=== PATIENT | male | born 1955 | race Caucasian/White ===

== ENCOUNTER 2017-04-16 22:57 | Emergency (ER) | payer OTHER ==
[~2017-04-16 22:57] MED LIST: AEC81 PO; ATOR20TA65 PO; GLIP1TAB6 PO; INSU10VI3 SQ; ISOS30TA6 PO; LISI10TA7 PO; MINERAL PO; NITR0.4T50 SL; TAMS0.4C32 PO; TICA90TA PO
[2017-04-16 23:19] LABS: BASOPHILS % (AUTO) 0.9 % (0.0-5.0); EOSINOPHILS % (AUTO) 2.8 % (0.0-8.0); HEMATOCRIT 39.1 % (42-54); LYMPHOCYTES % (AUTO) 27.1 % (21.0-51.0); MEAN CORPUSCULAR HEMOGLOBIN 26.7 pg (27.0-33.0); MEAN CORPUSCULAR HGB CONC 34.3 g/dL (32.0-36.0); NEUTROPHILS % (AUTO) 63.2 % (40.0-77.0); PLATELET COUNT (AUTO) 220 K/uL (130-400); RED BLOOD CELL COUNT(AUTO) 5.02 MIL/uL (4.50-6.20); RED CELL DISTRIBUTION WIDTH 14.4 % (11.0-15.5)
[2017-04-16] MEDS ORDERED: ASPIRIN 81MG TAB.CHEW ONE (23:20)
[2017-04-16 23:28] LABS: POTASSIUM 3.9 mmol/L (3.5-5.1)
[2017-04-16 23:41] LABS: ALBUMIN 3.6 g/dL (3.5-5.0); BILIRUBIN,TOTAL 0.4 mg/dL (0.2-1.0); CREATINE KINASE MB 0.5 ng/mL (0.5-3.6); MAGNESIUM 1.6 mg/dL (1.80-2.40); TOTAL PROTEIN, SERUM 7.3 g/dL (6.0-8.3)
[2017-04-16 23:45] LABS: INR 0.97 (0.85-1.15); PARTIAL THROMBOPLASTIN TIME 24.4 SEC (26.3-35.5); PROTHROMBIN TIME 10.2 SEC (9.6-11.6)
[2017-04-17] MEDS ORDERED: NITROGLYCERIN 1GM/1 INCH PACKET TD ONE (00:44)
[2017-04-17 01:14] LABS: CREATINE KINASE MB < 0.5 ng/mL (0.5-3.6); CREATINE KINASE, TOTAL 53 U/L (21-232); MYOGLOBIN 40 ng/mL (10-92); TROPONIN I < 0.04 ng/mL (0.00-0.06)
[2017-04-17] MEDS ORDERED: MAGNESIUM OXIDE 400 MG TABLET PO ONE (02:22)
== END 2017-04-17 04:08 | disposition home or self-care (01) ==
LOC: EDH 22:57
DX: M54.12 Radiculopathy, cervical region (principal); R68.84 Jaw pain; M54.2 Cervicalgia; E83.42 Hypomagnesemia; E11.9 Type 2 diabetes mellitus without complications; E78.5 Hyperlipidemia, unspecified; I10 Essential (primary) hypertension; Z88.8 Allergy status to other drugs, medicaments and biological substances
CPT/HCPCS: 36415; 71045; 80053; 82550; 82553; 82948; 83735; 83874; 84484; 85025; 85610; 85730; 93005

== ENCOUNTER 2018-09-27 14:18 | Emergency (ER) | payer BC, OTHER ==
[2018-09-27 14:42] LABS: BASOPHILS % (AUTO) 0.9 % (0.0-5.0); EOSINOPHILS % (AUTO) 2.1 % (0.0-8.0); HEMATOCRIT 40.9 % (42-54); LYMPHOCYTES % (AUTO) 20.1 % (21.0-51.0); MEAN CORPUSCULAR HEMOGLOBIN 26.7 pg (27.0-33.0); MEAN CORPUSCULAR HGB CONC 33.1 g/dL (32.0-36.0); MEAN CORPUSCULAR VOLUME 80.7 fL (79-99); MONOCYTES % (AUTO) 4.7 % (3.0-13.0); NEUTROPHILS % (AUTO) 72.2 % (40.0-77.0); NUCLEATED RED BLOOD CELLS 0.1 % (0.0-0.19); PLATELET COUNT (AUTO) 204 K/uL (130-400); RED BLOOD CELL COUNT(AUTO) 5.06 MIL/uL (4.50-6.20); RED CELL DISTRIBUTION WIDTH 14.3 % (11.0-15.5); WHITE BLOOD COUNT (AUTO) 8.7 K/uL (4.8-10.8)
[2018-09-27 14:58] LABS: CREATININE 1.1 mg/dL (0.5-1.5); POTASSIUM 4.3 mmol/L (3.5-5.1)
[2018-09-27 15:04] LABS: ALBUMIN 3.7 g/dL (3.5-5.0); BILIRUBIN,TOTAL 0.4 mg/dL (0.2-1.0); CREATINE KINASE, TOTAL 55 U/L (21-232); MYOGLOBIN 51 ng/mL (10-92); TOTAL PROTEIN, SERUM 7.4 g/dL (6.0-8.3); TROPONIN I < 0.04 ng/mL (0.00-0.06)
== END 2018-09-27 16:32 | disposition home or self-care (01) ==
LOC: EDH 14:18
DX: R42 Dizziness and giddiness (principal); E11.9 Type 2 diabetes mellitus without complications; E78.5 Hyperlipidemia, unspecified; I10 Essential (primary) hypertension; I25.10 Atherosclerotic heart disease of native coronary artery without angina pectoris; Z88.7 Allergy status to serum and vaccine
CPT/HCPCS: 36415; 70450; 80053; 82550; 83874; 84484; 85025; 93005

== ENCOUNTER 2019-06-08 20:17 | Emergency (ER) | payer BC, MEDICAID, OTHER, SELFPAY ==
[2019-06-08] MEDS ORDERED: GUAIFENESIN-CODEINE 5 ML SYRUP ONE (20:58)
[2019-06-08] MEDS ORDERED: BENZONATATE 100 MG CAPSULE PO ONE (20:58)
[2019-06-08 21:30] LABS: BASOPHILS % (AUTO) 0.3 % (0.0-5.0); EOSINOPHILS % (AUTO) 0.3 % (0.0-8.0); HEMATOCRIT 36.1 % (42-54); LYMPHOCYTES % (AUTO) 23.3 % (21.0-51.0); MEAN CORPUSCULAR HEMOGLOBIN 26.1 pg (27.0-33.0); MEAN CORPUSCULAR HGB CONC 33.2 g/dL (32.0-36.0); MEAN CORPUSCULAR VOLUME 78.6 fL (79-99); MONOCYTES % (AUTO) 12.7 % (3.0-13.0); NEUTROPHILS % (AUTO) 63.1 % (40.0-77.0); PLATELET COUNT (AUTO) 123 K/uL (130-400); RED BLOOD CELL COUNT(AUTO) 4.59 MIL/uL (4.50-6.20); RED CELL DISTRIBUTION WIDTH 13.4 % (11.0-15.5); WHITE BLOOD COUNT (AUTO) 3.8 K/uL (4.8-10.8)
[2019-06-08 21:42] LABS: CREATININE 1.2 mg/dL (0.5-1.5); POTASSIUM 4.2 mmol/L (3.5-5.1)
[2019-06-08 21:44] LABS: INR 0.99 (0.85-1.15); PARTIAL THROMBOPLASTIN TIME 31.3 SEC (26.3-35.5); PROTHROMBIN TIME 10.7 SEC (9.6-11.6)
[2019-06-08 21:46] LABS: ALBUMIN 3.5 g/dL (3.5-5.0); BILIRUBIN,TOTAL 0.6 mg/dL (0.2-1.0); TOTAL PROTEIN, SERUM 6.9 g/dL (6.0-8.3)
[2019-06-08] MEDS ORDERED: ACETAMINOPHEN EXTRA STRENGTH 500 MG TABLET ONE (22:57)
== END 2019-06-08 23:46 | disposition home or self-care (01) ==
LOC: EDH 20:17
DX: J12.9 Viral pneumonia, unspecified (principal); R00.2 Palpitations; Z20.828 Contact with and (suspected) exposure to other viral communicable diseases; E11.9 Type 2 diabetes mellitus without complications; I10 Essential (primary) hypertension; E78.5 Hyperlipidemia, unspecified; I25.10 Atherosclerotic heart disease of native coronary artery without angina pectoris; Z79.4 Long term (current) use of insulin; Z88.7 Allergy status to serum and vaccine
CPT/HCPCS: 36415; 71046; 71250; 80053; 82550; 83605; 84484; 85025; 85610; 85730; 87040; 87486; 87581; 87633; 87635; 87798; 87804; 93005

== ENCOUNTER 2019-06-10 23:34 | Inpatient (IN) | payer OTHER ==
[~2019-06-10] VITALS: Ht 180.3 cm; Wt 89.8 kg
[2019-06-10] MEDS ORDERED: MAG HYDROX/AL HYDROX/SIMETH ES 30 ML SUSP UDCUP ONE (23:49)
[2019-06-10] MEDS ORDERED: LIDOCAINE HCL 2% VISCOUS 15 ML UDCUP ONE (23:49)
[2019-06-10] MEDS ORDERED: CEFTRIAXONE SODIUM 2 GM VIAL ONE (23:49)
[2019-06-10] MEDS ORDERED: AZITHROMYCIN 500MG+NS 250ML 250 ML IV ONE (23:49)
[2019-06-10] MEDS ORDERED: ALBUTEROL INHALER 90MCG/INH IH ONE (23:57)
[2019-06-11] VITALS (36 sets, daily range): BP systolic 95–161; BP diastolic 47–77
[2019-06-11 00:18] LABS: CARBON DIOXIDE 25 mmol/L (21-32); CHLORIDE 92 mmol/L (101-111); CREATININE 1.3 mg/dL (0.5-1.5); GLOMERULAR FILTR. RATE CALC 59 mL/min (>60); GLUCOSE,RANDOM 173 mg/dL (70-105); POTASSIUM 4.1 mmol/L (3.5-5.1); SODIUM SERUM 126 mmol/L (136-145); UREA NITROGEN, BLOOD 15 mg/dL (7-18)
[2019-06-11 00:20] LABS: INR 0.94 (0.85-1.15); PARTIAL THROMBOPLASTIN TIME 29.8 SEC (26.3-35.5); PROTHROMBIN TIME 10.2 SEC (9.6-11.6)
[2019-06-11 00:29] LABS: RAPID GROUP A STREP NEGATIVE (NEGATIVE)
[2019-06-11 00:29] LABS: ALANINE AMINOTRANSFERASE 35 U/L (12-78); ASPARTATE AMINOTRANSFERASE 46 U/L (10-37); BILIRUBIN,TOTAL 0.6 mg/dL (0.2-1.0); CREATINE KINASE, TOTAL 375 U/L (21-232); MYOGLOBIN 229 ng/mL (10-92); TOTAL PROTEIN, SERUM 6.9 g/dL (6.0-8.3); TROPONIN I < 0.04 ng/mL (0.00-0.06)
[2019-06-11 00:42] LABS: BASOPHILS % (AUTO) 0.3 % (0.0-5.0); HEMATOCRIT 33.9 % (42-54); LYMPHOCYTES % (AUTO) 16.8 % (21.0-51.0); MEAN CORPUSCULAR HEMOGLOBIN 26.1 pg (27.0-33.0); MEAN CORPUSCULAR HGB CONC 33.6 g/dL (32.0-36.0); MEAN CORPUSCULAR VOLUME 77.6 fL (79-99); MONOCYTES % (AUTO) 8.9 % (3.0-13.0); NEUTROPHILS % (AUTO) 73.7 % (40.0-77.0); PLATELET COUNT (AUTO) 126 K/uL (130-400); RED BLOOD CELL COUNT(AUTO) 4.37 MIL/uL (4.50-6.20); RED CELL DISTRIBUTION WIDTH 13.4 % (11.0-15.5); WHITE BLOOD COUNT (AUTO) 3.8 K/uL (4.8-10.8)
[2019-06-11] MEDS ORDERED: ACETAMINOPHEN EXTRA STRENGTH 500 MG TABLET ONE (00:59)
[2019-06-11] MEDS ORDERED: METHYLPREDNISOLONE SOD SUCC 125MG/2ML VIAL ONE (01:01)
[2019-06-11] MEDS: CEFTRIAXONE SODIUM 1 GM IVP SCH ×2 (01:15→12:12)
[2019-06-11] MEDS: ZOSYN 3.375GM+NS 50ML 50 ML IV SCH ×2 (01:15→10:18)
[2019-06-11] MEDS: LACTATED RINGERS 1000ML 1,000 ML IV SCH ×2 (01:15→12:39)
[2019-06-11] MEDS ORDERED: DEXTROSE 50%-WATER 50 ML DISP.SYRIN IV PRN (01:30)
[2019-06-11] MEDS ORDERED: GLUCAGON 1MG KIT 1 MG ML IM PRN (01:30)
[2019-06-11 01:35] LABS: BILIRUBIN,URINE Negative (NEGATIVE); COLOR,URINE Yellow (YELLOW); GLUCOSE, URINE (UA) Negative (NEGATIVE); KETONES,URINE Negative (NEGATIVE); LEUKOCYTE ESTERASE ,URINE Negative (NEGATIVE); NITRATE,URINE Negative (NEGATIVE); OCCULT BLOOD,URINE Negative (NEGATIVE); PH,URINE 5.5 (5.0-8.0); PROTEIN,URINE Negative (NEGATIVE)
[2019-06-11] MEDS ORDERED: LACTATED RINGERS 1000ML 1,000 ML IV ONE (01:35)
[2019-06-11] MEDS ORDERED: ZOSYN 3.375GM+NS 50ML 50 ML IV ONE (01:35)
[2019-06-11 01:38] LABS: APPEARANCE,URINE CLEAR (CLEAR)
[2019-06-11] MEDS ORDERED: ONDANSETRON HCL 4 MG/2 ML VIAL IV PRN (01:45)
[2019-06-11] MEDS: INSULIN HUMULIN R 100 UNIT/ML 3ML SQ SCH ×4 (06:52→21:47)
[2019-06-11 06:58] LABS: HEMATOCRIT 33.8 % (42-54); LYMPHOCYTES % (AUTO) 16.9 % (21.0-51.0); MEAN CORPUSCULAR HEMOGLOBIN 26.5 pg (27.0-33.0); MEAN CORPUSCULAR HGB CONC 33.1 g/dL (32.0-36.0); MEAN CORPUSCULAR VOLUME 79.9 fL (79-99); MONOCYTES % (AUTO) 4.7 % (3.0-13.0); NEUTROPHILS % (AUTO) 77.7 % (40.0-77.0); PLATELET COUNT (AUTO) 122 K/uL (130-400); RED BLOOD CELL COUNT(AUTO) 4.23 MIL/uL (4.50-6.20); RED CELL DISTRIBUTION WIDTH 13.5 % (11.0-15.5)
[2019-06-11 07:14] LABS: HEMOGLOBIN A1C 8.8 % (4.0-6.0)
[2019-06-11 07:21] LABS: ALANINE AMINOTRANSFERASE 38 U/L (12-78); ALBUMIN 2.7 g/dL (3.5-5.0); ASPARTATE AMINOTRANSFERASE 40 U/L (10-37); BILIRUBIN,TOTAL 0.5 mg/dL (0.2-1.0); CARBON DIOXIDE 26 mmol/L (21-32); CHLORIDE 98 mmol/L (101-111); CHOLESTEROL 84 mg/dL (<200); CREATINE KINASE, TOTAL 337 U/L (21-232); CREATININE 1.2 mg/dL (0.5-1.5); GLOMERULAR FILTR. RATE CALC 65 mL/min (>60); GLUCOSE,RANDOM 256 mg/dL (70-105); HDL CHOLESTEROL 30 mg/dL (29-71); LDL DIRECT 46 mg/dL (0-99); MYOGLOBIN 101 ng/mL (10-92); POTASSIUM 5.1 mmol/L (3.5-5.1); SODIUM SERUM 131 mmol/L (136-145); TOTAL PROTEIN, SERUM 6.6 g/dL (6.0-8.3); TRIGLYCERIDES 64 mg/dL (30-200); TROPONIN I < 0.04 ng/mL (0.00-0.06); UREA NITROGEN, BLOOD 15 mg/dL (7-18)
[2019-06-11 08:20] LABS: BAND NEUTROPHILS % (MANUAL) 6 % (0-2); LYMPHOCYTES % (MANUAL) 9 % (22-44); MONOCYTES % (MANUAL) 5 % (2-9); SEGMENTED NEUTROPHILS % 80 % (40-70)
[2019-06-11 08:21] LABS: MAN.DIFF COMMENT-IMPRESSION MANUAL DIFFERENTIAL; PLATELET MORPHOLOGY COMMENT ADEQUATE
[2019-06-11] MEDS ORDERED: METHYLPREDNISOLONE SOD SUCC 40MG/ML 1ML IVP SCH (09:00)
[2019-06-11] MEDS: PANTOPRAZOLE 40 MG/VIAL IVP SCH ×2 (09:48→20:40)
[2019-06-11] MEDS: ASCORBIC ACID 500 MG TAB PO SCH (09:48)
[2019-06-11] MEDS: HYDROXYCHLOROQUINE SULFATE 200 MG TAB PO SCH ×2 (14:41→20:40)
[2019-06-11] MEDS: AZITHROMYCIN 500MG+NS 250ML 250 ML IV SCH (14:41)
--- NOTE | 2019-06-11 15:52 | NUR ---
INITIAL Patient lives with spouse, Odalis Lockwood, [phone]. No home services. DME: nebulizer, BPM, glucometer (uses insulin), oximeter. Patient needs help with ADL's and does not drive. PCP is Dr. Rohit Levine in [place]. Pharmacy is [facility] located in [place]. DCP is home. Patient has no insurance or benefits. He is a [place] citizen and has worked in the [place]. SW educated spouse on [email or web address] $4 medication program and [facility] $5 medication program. Patient is being assisted by [employer] for financial matters. Addendum: 06/11/19 at 1556 by KENDRA PRIETO Amended: Links added.
--- NOTE | 2019-06-11 21:30 | NUR ---
Assumed care for patient received report from radha patient is aaox4, vss , currently on nc @3L and tolerating well with oxygen levels at 94%
[2019-06-12] VITALS (21 sets, daily range): BP systolic 110–172; BP diastolic 54–102
[2019-06-12] MEDS: CEFTRIAXONE SODIUM 1 GM IVP SCH ×2 (00:39→12:20)
[2019-06-12] MEDS: ZOSYN 3.375GM+NS 50ML 50 ML IV SCH ×2 (00:39→12:20)
[2019-06-12] MEDS: GUAIFENESIN-CODEINE 5 ML SYRUP PO PRN ×2 (02:00→19:50)
[2019-06-12] MEDS: INSULIN HUMULIN R 100 UNIT/ML 3ML SQ SCH ×4 (06:02→21:17)
[2019-06-12 06:18] LABS: HEMATOCRIT 35.4 % (42-54); LYMPHOCYTES % (AUTO) 7.6 % (21.0-51.0); MEAN CORPUSCULAR HEMOGLOBIN 25.9 pg (27.0-33.0); MEAN CORPUSCULAR HGB CONC 32.5 g/dL (32.0-36.0); MEAN CORPUSCULAR VOLUME 79.7 fL (79-99); MONOCYTES % (AUTO) 7.2 % (3.0-13.0); NEUTROPHILS % (AUTO) 84.9 % (40.0-77.0); PLATELET COUNT (AUTO) 151 K/uL (130-400); RED BLOOD CELL COUNT(AUTO) 4.44 MIL/uL (4.50-6.20); RED CELL DISTRIBUTION WIDTH 13.3 % (11.0-15.5); WHITE BLOOD COUNT (AUTO) 6.8 K/uL (4.8-10.8)
[2019-06-12 06:32] LABS: ALBUMIN 2.7 g/dL (3.5-5.0); BILIRUBIN,TOTAL 0.4 mg/dL (0.2-1.0); CREATININE 1.2 mg/dL (0.5-1.5); MAGNESIUM 2.5 mg/dL (1.80-2.40); PHOSPHORUS 3.4 mg/dL (2.5-4.9); POTASSIUM 4.6 mmol/L (3.5-5.1); TOTAL PROTEIN, SERUM 6.7 g/dL (6.0-8.3)
[2019-06-12] MEDS: PANTOPRAZOLE 40 MG/VIAL IVP SCH (07:49)
[2019-06-12] MEDS: ASCORBIC ACID 500 MG TAB PO SCH (07:50)
[2019-06-12] MEDS: ZINC SULFATE 220 CAPSULE PO SCH (08:43)
[2019-06-12] MEDS ORDERED: HYDROXYCHLOROQUINE SULFATE 200 MG TAB PO SCH (09:00)
[2019-06-12] MEDS: AZITHROMYCIN 500MG+NS 250ML 250 ML IV SCH (11:51)
[2019-06-12] MEDS: HYDROXYCHLOROQUINE SULFATE 200 MG TAB PO SCH (17:56)
[2019-06-12] MEDS: ACETAMINOPHEN 325 MG TAB PO PRN (19:53)
[2019-06-13] VITALS (26 sets, daily range): BP systolic 95–167; BP diastolic 50–86
[2019-06-13] MEDS: CEFTRIAXONE SODIUM 1 GM IVP SCH ×3 (00:15→23:32)
[2019-06-13] MEDS: HYDROXYCHLOROQUINE SULFATE 200 MG TAB PO SCH ×4 (00:15→23:32)
[2019-06-13] MEDS: GUAIFENESIN-CODEINE 5 ML SYRUP PO PRN ×3 (02:07→20:38)
[2019-06-13] MEDS: ACETAMINOPHEN 325 MG TAB PO PRN ×2 (02:11→20:38)
[2019-06-13 06:25] LABS: CRP QUANTITATIVE 45.8 mg/L (0.00-9.0)
[2019-06-13] MEDS: INSULIN HUMULIN R 100 UNIT/ML 3ML SQ SCH ×4 (06:46→21:00)
[2019-06-13] MEDS: ZINC SULFATE 220 CAPSULE PO SCH (08:21)
[2019-06-13] MEDS: AZITHROMYCIN 250 MG TABLET PO SCH (09:50)
--- NOTE | 2019-06-13 14:58 | NUR ---
RD NOTIFICATION Dx possible COVID-19. Diet: 75gmccd. Po intake is poor, 0%. Pt reports having difficulties swallowing food due to SOB as per RN. Labs reviewed (a1c 8.8, renal function is good). Skin is intact. RD recommends to add mechanical soft/chopped to diet order Add glucerna TID to diet order Recommend 500mg Vitamin C BID - support immune function RD will continue to monitor and follow up, thank you. Addendum: 06/13/19 at [address] Amended: Links added.
[2019-06-13] MEDS ORDERED: PROMETHAZINE HCL 25 MG/ML 1ML AMPULE IM PRN (15:00)
--- NOTE | 2019-06-13 18:59 | NUR ---
PERRY CATHETER PERRY CATHETER ATTEMPTED TO BE REMOVED AT 1730; PATIENT REFUSED STATING THAT HE HAS DIFFICULTY URINATING AND DID NOT WANT IT REMOVED; DR QUEZADA AT BEDSIDE AND NOTIFIED; STATED WE NEED TO REMOVE PERRY CATHETER. PATIENT INFORMED ON RISKS OF KEEPING PERRY CATHETER AND FINALLY STATED HE WAS OK WITH REMOVING IT. PERRY CATHETER REMOVED AT 1850; REPORT WILL BE GIVEN TO PRODUCTION SUPERINTENDENT
[2019-06-13] MEDS: ASCORBIC ACID 500 MG TAB PO SCH (20:37)
[2019-06-14] VITALS (19 sets, daily range): BP systolic 126–170; BP diastolic 48–84
[2019-06-14 05:47] LABS: CRP QUANTITATIVE 180.4 mg/L (0.00-9.0)
[2019-06-14] MEDS: INSULIN HUMULIN R 100 UNIT/ML 3ML SQ SCH ×5 (06:28→21:00)
[2019-06-14] MEDS: HYDROXYCHLOROQUINE SULFATE 200 MG TAB PO SCH ×2 (08:55→16:37)
[2019-06-14] MEDS: FLUTICASONE PROPIONATE 50MCG/SPRAY 16 GM BOTTLE EN SCH (08:55)
[2019-06-14] MEDS: AZITHROMYCIN 250 MG TABLET PO SCH (08:55)
[2019-06-14] MEDS: ZINC SULFATE 220 CAPSULE PO SCH (08:56)
[2019-06-14] MEDS: ASCORBIC ACID 500 MG TAB PO SCH ×2 (08:56→21:16)
[2019-06-14] MEDS: ACETAMINOPHEN 325 MG TAB PO PRN (09:54)
[2019-06-14] MEDS: GUAIFENESIN-CODEINE 5 ML SYRUP PO PRN ×3 (09:54→22:33)
[2019-06-14] MEDS: CEFTRIAXONE SODIUM 1 GM IVP SCH (15:01)
--- NOTE | 2019-06-14 15:19 | NUR ---
PT BLADDER DISTENDED AND TENDER ON PALPATION- PERRY CATH INSERTED WITHOUT PROBLEM. QUICKLY FLOWS INTO BEDSIDED DRAINAGE BAG
[2019-06-14] MEDS: TAMSULOSIN HCL 0.4 MG CAP.ER.24H PO SCH (16:36)
[2019-06-14] MEDS: FINASTERIDE 5 MG TABLET PO SCH (16:36)
[2019-06-14] MEDS: TICAGRELOR 90 MG TABLET PO SCH (21:18)
[2019-06-14] MEDS: ATORVASTATIN CALCIUM 20 MG TABLET PO SCH (21:19)
[2019-06-14] MEDS: INSULIN GLARGINE 100 UNITS/ML 10 ML VIAL SQ SCH (22:02)
[2019-06-15] VITALS (22 sets, daily range): BP systolic 132–195; BP diastolic 56–102
[2019-06-15] MEDS: CEFTRIAXONE SODIUM 1 GM IVP SCH ×2 (00:18→12:06)
[2019-06-15] MEDS: HYDROXYCHLOROQUINE SULFATE 200 MG TAB PO SCH ×3 (00:18→16:52)
[2019-06-15] MEDS: ACETAMINOPHEN 325 MG TAB PO PRN ×2 (00:26→07:00)
[2019-06-15] MEDS: INSULIN HUMULIN R 100 UNIT/ML 3ML SQ SCH ×4 (06:29→21:00)
[2019-06-15 06:35] LABS: BASOPHILS % (AUTO) 0.1 % (0.0-5.0); EOSINOPHILS % (AUTO) 0.4 % (0.0-8.0); HEMATOCRIT 33.5 % (42-54); LYMPHOCYTES % (AUTO) 9.9 % (21.0-51.0); MEAN CORPUSCULAR HEMOGLOBIN 26.3 pg (27.0-33.0); MEAN CORPUSCULAR HGB CONC 32.8 g/dL (32.0-36.0); MONOCYTES % (AUTO) 9.1 % (3.0-13.0); NEUTROPHILS % (AUTO) 79.1 % (40.0-77.0); PLATELET COUNT (AUTO) 185 K/uL (130-400); RED BLOOD CELL COUNT(AUTO) 4.19 MIL/uL (4.50-6.20); RED CELL DISTRIBUTION WIDTH 13.6 % (11.0-15.5); WHITE BLOOD COUNT (AUTO) 7.1 K/uL (4.8-10.8)
[2019-06-15] MEDS: GUAIFENESIN-CODEINE 5 ML SYRUP PO PRN ×3 (06:59→21:42)
[2019-06-15 07:13] LABS: B-TYPE NATRIURETIC PEPTIDE 57 pg/mL (0-100)
[2019-06-15 07:28] LABS: CREATININE 1.1 mg/dL (0.5-1.5); MAGNESIUM 2.5 mg/dL (1.80-2.40); PHOSPHORUS 2.9 mg/dL (2.5-4.9); POTASSIUM 4.1 mmol/L (3.5-5.1)
--- NOTE | 2019-06-15 07:51 | NUR ---
PT SHOWS SIGNS OF ANXIETY-RESTLESS NIGHT, C/O DYSPNEA . PT VISIBLY NOT SOB. HAS FATIGUE. BILATERAL BREATH SOUNDS PRESENT. WHEEZES NOTED. 02 4L/NC. V/S STABLE.
[2019-06-15] MEDS: ZINC SULFATE 220 CAPSULE PO SCH (08:41)
[2019-06-15] MEDS: FINASTERIDE 5 MG TABLET PO SCH (08:41)
[2019-06-15] MEDS: ASCORBIC ACID 500 MG TAB PO SCH ×2 (08:41→20:19)
[2019-06-15] MEDS: ASPIRIN 81 MG EC TAB PO SCH (08:42)
[2019-06-15] MEDS: AZITHROMYCIN 250 MG TABLET PO SCH (08:42)
[2019-06-15] MEDS: TAMSULOSIN HCL 0.4 MG CAP.ER.24H PO SCH (08:42)
[2019-06-15] MEDS: TICAGRELOR 90 MG TABLET PO SCH ×2 (08:42→20:20)
[2019-06-15] MEDS: ENOXAPARIN SODIUM 40 MG/0.4 ML SYRINGE SQ SCH (08:43)
[2019-06-15] MEDS: FLUTICASONE PROPIONATE 50MCG/SPRAY 16 GM BOTTLE EN SCH (08:43)
[2019-06-15] MEDS ORDERED: TAMSULOSIN HCL 0.4 MG CAP.ER.24H PO SCH (09:00)
[2019-06-15] MEDS ORDERED: LISINOPRIL 10 MG TABLET PO SCH (09:00)
[2019-06-15 11:37] LABS: CRP QUANTITATIVE 302.9 mg/L (0.00-9.0)
--- NOTE | 2019-06-15 13:00 | NUR ---
PT ASSISTED TO CARDIAC CHAIR. REFUSES SHOWER. PT WILL NOT TOLERATE INCREASED ACTIVITY .. HE BECOMES SOB/FATIGUED. HE IS HUNGRY BUT WILL NOT EAT TRAY OFFERED. STATES HE IS AFRAID OF CHOKING DUE TO HIS COUGH.
--- NOTE | 2019-06-15 14:51 | NUR ---
COVID-[address] KILPATRICK, DR WANG, LAUREN AZEVEDO SALES DRIVER MADE AWARE. I ALSO RECEIVED A CALL FROM ALEXIS TORREZ RN AND SHE WAS UPDATED
--- NOTE | 2019-06-15 17:17 | NUR ---
PT COMFORTABLE IN CARDIAC CHAIR
[2019-06-15] MEDS: ATORVASTATIN CALCIUM 20 MG TABLET PO SCH (20:19)
[2019-06-15] MEDS: INSULIN GLARGINE 100 UNITS/ML 10 ML VIAL SQ SCH (20:21)
[2019-06-15] MEDS ORDERED: ONDANSETRON HCL 4 MG/2 ML VIAL ONE (21:23)
[2019-06-15] MEDS: HYDRALAZINE HCL 20 MG/ML VIAL IV PRN (21:42)
[2019-06-16] VITALS (23 sets, daily range): BP systolic 144–197; BP diastolic 65–97
[2019-06-16] MEDS: HYDROXYCHLOROQUINE SULFATE 200 MG TAB PO SCH ×4 (00:29→23:37)
[2019-06-16] MEDS: CEFTRIAXONE SODIUM 1 GM IVP SCH ×2 (00:29→13:46)
[2019-06-16] MEDS: GUAIFENESIN-CODEINE 5 ML SYRUP PO PRN ×3 (04:33→23:20)
[2019-06-16] MEDS: INSULIN HUMULIN R 100 UNIT/ML 3ML SQ SCH ×4 (06:48→20:55)
[2019-06-16] MEDS: ZINC SULFATE 220 CAPSULE PO SCH (09:55)
[2019-06-16] MEDS: AZITHROMYCIN 250 MG TABLET PO SCH (09:56)
[2019-06-16] MEDS: TAMSULOSIN HCL 0.4 MG CAP.ER.24H PO SCH (09:56)
[2019-06-16] MEDS: ASPIRIN 81 MG EC TAB PO SCH (09:56)
[2019-06-16] MEDS: FINASTERIDE 5 MG TABLET PO SCH (09:56)
[2019-06-16] MEDS: ASCORBIC ACID 500 MG TAB PO SCH ×2 (09:57→20:51)
[2019-06-16] MEDS: FLUTICASONE PROPIONATE 50MCG/SPRAY 16 GM BOTTLE EN SCH (09:58)
[2019-06-16] MEDS: TICAGRELOR 90 MG TABLET PO SCH ×2 (09:58→20:51)
[2019-06-16] MEDS: ENOXAPARIN SODIUM 40 MG/0.4 ML SYRINGE SQ SCH (09:59)
[2019-06-16] MEDS: ATORVASTATIN CALCIUM 20 MG TABLET PO SCH (20:51)
[2019-06-16] MEDS: HYDRALAZINE HCL 20 MG/ML VIAL IV PRN (20:52)
[2019-06-16] MEDS: ALPRAZOLAM 0.25 MG TABLET PO PRN (20:52)
[2019-06-16] MEDS: INSULIN GLARGINE 100 UNITS/ML 10 ML VIAL SQ SCH (20:54)
[2019-06-17] VITALS (20 sets, daily range): BP systolic 128–187; BP diastolic 65–105
--- NOTE | 2019-06-17 | NUR ---
NASAL CANNULA PATIENT COMPLAINT OF VENTI MASK AIR BEING TO COLD AND STRONG. RT WAS CALLED AND PATIENT WAS CHANGED FROM 40% TO 35%. SHORTLY AFTER PATIENT STATED THAT COULD NOT TOLERATED WEARING VENTI MASK AND WANTED NASAL CANNULA BACK. PATIENT WAS ON HUMIDIFIED NASAL CANNULA HAD NOSE BLEED 06/15 1700 AND WAS SWITCHED TO VENTI MASK. RT NOTIFIED AND PATIENT WAS PLACED ON 4L NASAL CANNULA PER REQUEST.
[2019-06-17] MEDS: CEFTRIAXONE SODIUM 1 GM IVP SCH ×2 (01:25→12:41)
[2019-06-17] MEDS ORDERED: DiphenhydrAMINE HCL 50 MG/ML VIAL IV ONE (05:15)
[2019-06-17] MEDS: GUAIFENESIN-CODEINE 5 ML SYRUP PO PRN (05:16)
[2019-06-17 05:34] LABS: BASOPHILS % (AUTO) 0.2 % (0.0-5.0); EOSINOPHILS % (AUTO) 1.4 % (0.0-8.0); HEMATOCRIT 35.7 % (42-54); LYMPHOCYTES % (AUTO) 6.2 % (21.0-51.0); MEAN CORPUSCULAR HEMOGLOBIN 26.7 pg (27.0-33.0); MEAN CORPUSCULAR HGB CONC 33.3 g/dL (32.0-36.0); NEUTROPHILS % (AUTO) 79.9 % (40.0-77.0); PLATELET COUNT (AUTO) 298 K/uL (130-400); RED BLOOD CELL COUNT(AUTO) 4.46 MIL/uL (4.50-6.20); RED CELL DISTRIBUTION WIDTH 13.5 % (11.0-15.5); WHITE BLOOD COUNT (AUTO) 9.7 K/uL (4.8-10.8)
--- NOTE | 2019-06-17 05:45 | NUR ---
SLEEP AID 0500 PATIENT REQUEST SLEEP AID. PATIENT HAD ANXIOLYTIC IN EARLY EVENING AND DECLINED ANOTHER DOSE STATING THAT DID NOT HELP HIM RELAX AT ALL. HOSPITALIST LINE RUNNER PAGED. ORDERS RECEIVED FOR BENADRYL. ORDER ENTERED INTO SYSTEM.
[2019-06-17 05:53] LABS: CREATININE 0.9 mg/dL (0.5-1.5); POTASSIUM 3.8 mmol/L (3.5-5.1)
[2019-06-17 06:48] LABS: CRP QUANTITATIVE 250.4 mg/L (0.00-9.0)
[2019-06-17] MEDS: INSULIN HUMULIN R 100 UNIT/ML 3ML SQ SCH ×4 (07:30→21:33)
[2019-06-17] MEDS: ASCORBIC ACID 500 MG TAB PO SCH ×2 (08:02→19:50)
[2019-06-17] MEDS: FLUTICASONE PROPIONATE 50MCG/SPRAY 16 GM BOTTLE EN SCH (08:02)
[2019-06-17] MEDS: ASPIRIN 81 MG EC TAB PO SCH (08:03)
[2019-06-17] MEDS: FINASTERIDE 5 MG TABLET PO SCH (08:04)
[2019-06-17] MEDS: TAMSULOSIN HCL 0.4 MG CAP.ER.24H PO SCH (08:04)
[2019-06-17] MEDS: ENOXAPARIN SODIUM 40 MG/0.4 ML SYRINGE SQ SCH ×2 (08:06→19:50)
[2019-06-17] MEDS: ZINC SULFATE 220 CAPSULE PO SCH (08:06)
[2019-06-17] MEDS: HYDROXYCHLOROQUINE SULFATE 200 MG TAB PO SCH ×2 (08:07→19:50)
[2019-06-17] MEDS: ACETAMINOPHEN 325 MG TAB PO PRN (08:09)
[2019-06-17] MEDS: TICAGRELOR 90 MG TABLET PO SCH ×2 (08:58→19:51)
[2019-06-17] MEDS: HYDRALAZINE HCL 20 MG/ML VIAL IV PRN (10:03)
[2019-06-17] MEDS: ALPRAZOLAM 0.25 MG TABLET PO PRN ×2 (10:46→18:43)
--- NOTE | 2019-06-17 11:19 | NUR ---
RD FOLLOW UP Diet: 75gmccd, soft/chopped, Glucerna TID. RN reports PO intake is 0% and has poor appetite. Labs and meds reviewed. Positive for COVID. No recent BM recorded. O2 levels are good per RN. RD recommends to encourage adequate nutrition/ hydration daily Continue Glucerna TID Monitor po intake and tolerance RD will continue to monitor and follow up, thank you.
[2019-06-17] MEDS: CARVEDILOL 6.25 MG TABLET PO SCH ×2 (12:59→19:50)
[2019-06-17] MEDS: ZOSYN 3.375GM+NS 50ML 50 ML IV SCH ×2 (15:46→22:49)
[2019-06-17] MEDS: HYDRALAZINE HCL 25 MG TABLET PO SCH ×2 (16:22→19:51)
--- NOTE | 2019-06-17 16:50 | NUR ---
DR ZUNIGA AT BEDSIDE, NEW ORDERS GIVEN
[2019-06-17] MEDS: ATORVASTATIN CALCIUM 20 MG TABLET PO SCH (19:53)
[2019-06-17] MEDS: INSULIN GLARGINE 100 UNITS/ML 10 ML VIAL SQ SCH (19:55)
[2019-06-18] VITALS (31 sets, daily range): BP systolic 139–181; BP diastolic 63–91
[2019-06-18] MEDS: GUAIFENESIN-CODEINE 5 ML SYRUP PO PRN (00:12)
[2019-06-18] MEDS: CEFTRIAXONE SODIUM 1 GM IVP SCH (00:19)
--- NOTE | 2019-06-18 01:00 | NUR ---
Venti Mask Patient placed on venti mask due to oxygen sats SPO2 at 88% 4L NC. Patient continues to complaint of venti mask air being too cold, RT made aware. Patient continuously reminded to keep venti mask on at all times but continues to remove it on & off. Gave PRN anxiety medication as per patient request. Call light within reach, no respiratory distress at this time, oxygen sats 90-94% Venti mask, patient being monitor closely.
[2019-06-18] MEDS: ALPRAZOLAM 0.25 MG TABLET PO PRN ×2 (04:12→12:38)
[2019-06-18 05:47] LABS: BASOPHILS % (AUTO) 0.3 % (0.0-5.0); HEMATOCRIT 35.5 % (42-54); LYMPHOCYTES % (AUTO) 5.9 % (21.0-51.0); MEAN CORPUSCULAR HGB CONC 32.7 g/dL (32.0-36.0); MEAN CORPUSCULAR VOLUME 79.4 fL (79-99); MONOCYTES % (AUTO) 6.9 % (3.0-13.0); NEUTROPHILS % (AUTO) 83.5 % (40.0-77.0); PLATELET COUNT (AUTO) 332 K/uL (130-400); RED BLOOD CELL COUNT(AUTO) 4.47 MIL/uL (4.50-6.20); RED CELL DISTRIBUTION WIDTH 13.6 % (11.0-15.5); WHITE BLOOD COUNT (AUTO) 9.3 K/uL (4.8-10.8)
[2019-06-18] MEDS: INSULIN HUMULIN R 100 UNIT/ML 3ML SQ SCH ×4 (06:32→22:14)
[2019-06-18 06:38] LABS: MAGNESIUM 2.4 mg/dL (1.80-2.40); PHOSPHORUS 3.4 mg/dL (2.5-4.9); POTASSIUM 3.8 mmol/L (3.5-5.1)
[2019-06-18] MEDS: ZOSYN 3.375GM+NS 50ML 50 ML IV SCH ×3 (07:56→22:54)
[2019-06-18] MEDS: HYDRALAZINE HCL 25 MG TABLET PO SCH ×3 (08:01→20:41)
[2019-06-18] MEDS: ENOXAPARIN SODIUM 40 MG/0.4 ML SYRINGE SQ SCH ×2 (08:02→20:47)
[2019-06-18] MEDS: FINASTERIDE 5 MG TABLET PO SCH (08:02)
[2019-06-18] MEDS: TAMSULOSIN HCL 0.4 MG CAP.ER.24H PO SCH (08:03)
[2019-06-18] MEDS: ASCORBIC ACID 500 MG TAB PO SCH ×2 (08:03→20:38)
[2019-06-18] MEDS: TICAGRELOR 90 MG TABLET PO SCH ×2 (08:03→20:37)
[2019-06-18] MEDS: HYDROXYCHLOROQUINE SULFATE 200 MG TAB PO SCH ×2 (08:03→20:36)
[2019-06-18] MEDS: CARVEDILOL 6.25 MG TABLET PO SCH ×2 (08:03→20:38)
[2019-06-18] MEDS: ASPIRIN 81 MG EC TAB PO SCH (08:03)
[2019-06-18] MEDS: ZINC SULFATE 220 CAPSULE PO SCH (08:03)
[2019-06-18] MEDS: FLUTICASONE PROPIONATE 50MCG/SPRAY 16 GM BOTTLE EN SCH (08:04)
[2019-06-18] MEDS: CLONAZEPAM 0.5 MG TABLET PO SCH ×2 (15:28→20:47)
[2019-06-18] MEDS: DOCUSATE SODIUM 100 MG CAP PO SCH ×2 (15:28→20:47)
[2019-06-18] MEDS: ATORVASTATIN CALCIUM 20 MG TABLET PO SCH (20:36)
[2019-06-18] MEDS: INSULIN GLARGINE 100 UNITS/ML 10 ML VIAL SQ SCH (20:39)
[2019-06-18] MEDS: SENNOSIDES 8.6 MG TABLET PO SCH (20:47)
[2019-06-19] VITALS (24 sets, daily range): BP systolic 120–168; BP diastolic 56–80
[2019-06-19] MEDS: ALPRAZOLAM 0.25 MG TABLET PO PRN ×3 (00:38→20:19)
[2019-06-19] MEDS: GUAIFENESIN-CODEINE 5 ML SYRUP PO PRN (02:51)
[2019-06-19 05:21] LABS: HEMATOCRIT 32.8 % (42-54); MEAN CORPUSCULAR HEMOGLOBIN 26.1 pg (27.0-33.0); MEAN CORPUSCULAR HGB CONC 32.9 g/dL (32.0-36.0); MEAN CORPUSCULAR VOLUME 79.2 fL (79-99); PLATELET COUNT (AUTO) 341 K/uL (130-400); RED BLOOD CELL COUNT(AUTO) 4.14 MIL/uL (4.50-6.20); RED CELL DISTRIBUTION WIDTH 13.6 % (11.0-15.5); WHITE BLOOD COUNT (AUTO) 9.8 K/uL (4.8-10.8)
[2019-06-19] MEDS: INSULIN HUMULIN R 100 UNIT/ML 3ML SQ SCH ×4 (05:47→20:23)
[2019-06-19 05:53] LABS: POTASSIUM 3.6 mmol/L (3.5-5.1)
[2019-06-19] MEDS: ZOSYN 3.375GM+NS 50ML 50 ML IV SCH ×3 (08:43→20:27)
[2019-06-19] MEDS: DOCUSATE SODIUM 100 MG CAP PO SCH ×2 (08:44→20:20)
[2019-06-19] MEDS: CLONAZEPAM 0.5 MG TABLET PO SCH ×2 (08:44→20:19)
[2019-06-19] MEDS: DOXAZOSIN MESYLATE 2 MG TABLET PO SCH (08:44)
[2019-06-19] MEDS: ENOXAPARIN SODIUM 40 MG/0.4 ML SYRINGE SQ SCH ×2 (08:44→20:21)
[2019-06-19] MEDS: TICAGRELOR 90 MG TABLET PO SCH ×2 (08:44→20:19)
[2019-06-19] MEDS: HYDRALAZINE HCL 25 MG TABLET PO SCH ×3 (08:45→20:20)
[2019-06-19] MEDS: CARVEDILOL 6.25 MG TABLET PO SCH ×2 (08:45→20:20)
[2019-06-19] MEDS: ZINC SULFATE 220 CAPSULE PO SCH (08:45)
[2019-06-19] MEDS: HYDROXYCHLOROQUINE SULFATE 200 MG TAB PO SCH ×2 (08:45→20:21)
[2019-06-19] MEDS: ASPIRIN 81 MG EC TAB PO SCH (08:45)
[2019-06-19] MEDS: TAMSULOSIN HCL 0.4 MG CAP.ER.24H PO SCH (08:45)
[2019-06-19] MEDS: ASCORBIC ACID 500 MG TAB PO SCH ×2 (08:45→20:21)
[2019-06-19] MEDS: FINASTERIDE 5 MG TABLET PO SCH (08:46)
[2019-06-19] MEDS: FLUTICASONE PROPIONATE 50MCG/SPRAY 16 GM BOTTLE EN SCH (08:46)
[2019-06-19] MEDS: SENNOSIDES 8.6 MG TABLET PO SCH (20:20)
[2019-06-19] MEDS: ATORVASTATIN CALCIUM 20 MG TABLET PO SCH (20:21)
[2019-06-19] MEDS: INSULIN GLARGINE 100 UNITS/ML 10 ML VIAL SQ SCH (20:24)
[2019-06-20] VITALS (29 sets, daily range): BP systolic 127–185; BP diastolic 48–92
[2019-06-20 04:24] LABS: BASOPHILS % (AUTO) 0.2 % (0.0-5.0); EOSINOPHILS % (AUTO) 1.7 % (0.0-8.0); HEMATOCRIT 32.4 % (42-54); MEAN CORPUSCULAR HEMOGLOBIN 26.7 pg (27.0-33.0); MEAN CORPUSCULAR HGB CONC 33.3 g/dL (32.0-36.0); MEAN CORPUSCULAR VOLUME 80.2 fL (79-99); MONOCYTES % (AUTO) 4.2 % (3.0-13.0); NEUTROPHILS % (AUTO) 85.7 % (40.0-77.0); PLATELET COUNT (AUTO) 316 K/uL (130-400); RED BLOOD CELL COUNT(AUTO) 4.04 MIL/uL (4.50-6.20); RED CELL DISTRIBUTION WIDTH 13.5 % (11.0-15.5)
[2019-06-20 04:43] LABS: CREATININE 0.9 mg/dL (0.5-1.5); POTASSIUM 3.8 mmol/L (3.5-5.1)
[2019-06-20] MEDS: INSULIN HUMULIN R 100 UNIT/ML 3ML SQ SCH ×4 (05:48→21:28)
[2019-06-20] MEDS: ZINC SULFATE 220 CAPSULE PO SCH (09:31)
[2019-06-20] MEDS: TICAGRELOR 90 MG TABLET PO SCH ×2 (09:32→21:31)
[2019-06-20] MEDS: ASCORBIC ACID 500 MG TAB PO SCH ×2 (09:32→21:32)
[2019-06-20] MEDS: ASPIRIN 81 MG EC TAB PO SCH (09:32)
[2019-06-20] MEDS: CARVEDILOL 6.25 MG TABLET PO SCH ×2 (09:32→21:30)
[2019-06-20] MEDS: TAMSULOSIN HCL 0.4 MG CAP.ER.24H PO SCH (09:32)
[2019-06-20] MEDS: CLONAZEPAM 0.5 MG TABLET PO SCH ×2 (09:32→21:32)
[2019-06-20] MEDS: FINASTERIDE 5 MG TABLET PO SCH (09:32)
[2019-06-20] MEDS: DOCUSATE SODIUM 100 MG CAP PO SCH ×3 (09:33→21:41)
[2019-06-20] MEDS: HYDRALAZINE HCL 25 MG TABLET PO SCH ×3 (09:34→21:42)
[2019-06-20] MEDS: HYDROXYCHLOROQUINE SULFATE 200 MG TAB PO SCH ×2 (09:36→21:32)
[2019-06-20] MEDS: DOXAZOSIN MESYLATE 2 MG TABLET PO SCH (09:36)
[2019-06-20] MEDS: ZOSYN 3.375GM+NS 50ML 50 ML IV SCH ×3 (09:37→23:42)
[2019-06-20] MEDS: FLUTICASONE PROPIONATE 50MCG/SPRAY 16 GM BOTTLE EN SCH (11:19)
[2019-06-20] MEDS: ENOXAPARIN SODIUM 40 MG/0.4 ML SYRINGE SQ SCH (11:19)
--- NOTE | 2019-06-20 16:06 | NUR ---
RD FOLLOW UP Pt with Poor PO (25%). Glucerna in place. Recommend to add 60mL Promod BID. Pt with constipation (LBM 06/14/19), Senna in place. Rec to monitor bowel activity. RD to continue to monitor. Please notify as additional nutrition concerns arise. Thank you. Addendum: 06/20/19 at [address] Amended: Links added.
[2019-06-20] MEDS: SENNOSIDES 8.6 MG TABLET PO SCH ×2 (21:00→21:41)
[2019-06-20] MEDS: INSULIN GLARGINE 100 UNITS/ML 10 ML VIAL SQ SCH (21:27)
[2019-06-20] MEDS: ATORVASTATIN CALCIUM 20 MG TABLET PO SCH (21:32)
[2019-06-20] MEDS: ENOXAPARIN SODIUM 60 MG/0.6 ML SQ SCH (21:41)
[2019-06-20] MEDS: GUAIFENESIN-CODEINE 5 ML SYRUP PO PRN (23:44)
[2019-06-21] VITALS (24 sets, daily range): BP systolic 116–159; BP diastolic 55–75
[2019-06-21 04:52] LABS: BASOPHILS % (AUTO) 0.3 % (0.0-5.0); EOSINOPHILS % (AUTO) 1.6 % (0.0-8.0); HEMATOCRIT 31.8 % (42-54); LYMPHOCYTES % (AUTO) 7.4 % (21.0-51.0); MEAN CORPUSCULAR HGB CONC 32.4 g/dL (32.0-36.0); MEAN CORPUSCULAR VOLUME 80.3 fL (79-99); MONOCYTES % (AUTO) 5.7 % (3.0-13.0); NEUTROPHILS % (AUTO) 83.9 % (40.0-77.0); PLATELET COUNT (AUTO) 327 K/uL (130-400); RED BLOOD CELL COUNT(AUTO) 3.96 MIL/uL (4.50-6.20); RED CELL DISTRIBUTION WIDTH 13.4 % (11.0-15.5); WHITE BLOOD COUNT (AUTO) 9.2 K/uL (4.8-10.8)
[2019-06-21 05:09] LABS: POTASSIUM 3.9 mmol/L (3.5-5.1)
[2019-06-21] MEDS: INSULIN HUMULIN R 100 UNIT/ML 3ML SQ SCH ×4 (06:36→21:00)
[2019-06-21] MEDS: ZOSYN 3.375GM+NS 50ML 50 ML IV SCH ×2 (09:05→18:10)
[2019-06-21] MEDS: ZINC SULFATE 220 CAPSULE PO SCH (09:06)
[2019-06-21] MEDS: ENOXAPARIN SODIUM 60 MG/0.6 ML SQ SCH ×2 (09:06→21:00)
[2019-06-21] MEDS: FINASTERIDE 5 MG TABLET PO SCH (09:07)
[2019-06-21] MEDS: ASCORBIC ACID 500 MG TAB PO SCH ×2 (09:07→20:33)
[2019-06-21] MEDS: TAMSULOSIN HCL 0.4 MG CAP.ER.24H PO SCH (09:07)
[2019-06-21] MEDS: ASPIRIN 81 MG EC TAB PO SCH (09:07)
[2019-06-21] MEDS: DOCUSATE SODIUM 100 MG CAP PO SCH ×2 (09:07→20:32)
[2019-06-21] MEDS: HYDROXYCHLOROQUINE SULFATE 200 MG TAB PO SCH (09:07)
[2019-06-21] MEDS: DOXAZOSIN MESYLATE 2 MG TABLET PO SCH (09:07)
[2019-06-21] MEDS: CARVEDILOL 6.25 MG TABLET PO SCH ×2 (09:07→20:33)
[2019-06-21] MEDS: HYDRALAZINE HCL 25 MG TABLET PO SCH ×3 (09:07→20:32)
[2019-06-21] MEDS: FLUTICASONE PROPIONATE 50MCG/SPRAY 16 GM BOTTLE EN SCH (09:08)
[2019-06-21] MEDS: TICAGRELOR 90 MG TABLET PO SCH ×2 (09:08→20:33)
[2019-06-21] MEDS: CLONAZEPAM 0.5 MG TABLET PO SCH ×2 (09:09→20:32)
[2019-06-21] MEDS: GUAIFENESIN-CODEINE 5 ML SYRUP PO PRN (18:10)
[2019-06-21] MEDS: ATORVASTATIN CALCIUM 20 MG TABLET PO SCH (20:32)
[2019-06-21] MEDS: SENNOSIDES 8.6 MG TABLET PO SCH (20:32)
[2019-06-21] MEDS: INSULIN GLARGINE 100 UNITS/ML 10 ML VIAL SQ SCH (21:00)
[2019-06-21] MEDS: ACETAMINOPHEN 325 MG TAB PO PRN (23:45)
[2019-06-22] VITALS (18 sets, daily range): BP systolic 111–154; BP diastolic 39–79
[2019-06-22] MEDS: ZOSYN 3.375GM+NS 50ML 50 ML IV SCH ×4 (00:03→23:40)
[2019-06-22] MEDS: GUAIFENESIN-CODEINE 5 ML SYRUP PO PRN ×3 (01:50→20:39)
[2019-06-22 04:28] LABS: BASOPHILS % (AUTO) 0.3 % (0.0-5.0); EOSINOPHILS % (AUTO) 1.8 % (0.0-8.0); HEMATOCRIT 31.3 % (42-54); LYMPHOCYTES % (AUTO) 7.5 % (21.0-51.0); MEAN CORPUSCULAR HEMOGLOBIN 26.9 pg (27.0-33.0); MEAN CORPUSCULAR HGB CONC 33.2 g/dL (32.0-36.0); MEAN CORPUSCULAR VOLUME 81.1 fL (79-99); MONOCYTES % (AUTO) 5.1 % (3.0-13.0); NEUTROPHILS % (AUTO) 84.3 % (40.0-77.0); PLATELET COUNT (AUTO) 338 K/uL (130-400); RED BLOOD CELL COUNT(AUTO) 3.86 MIL/uL (4.50-6.20); RED CELL DISTRIBUTION WIDTH 13.4 % (11.0-15.5); WHITE BLOOD COUNT (AUTO) 9.2 K/uL (4.8-10.8)
[2019-06-22 04:41] LABS: MAGNESIUM 2.3 mg/dL (1.80-2.40); PHOSPHORUS 3.2 mg/dL (2.5-4.9); POTASSIUM 3.7 mmol/L (3.5-5.1)
[2019-06-22] MEDS: INSULIN HUMULIN R 100 UNIT/ML 3ML SQ SCH ×4 (06:46→21:18)
[2019-06-22] MEDS: HYDRALAZINE HCL 25 MG TABLET PO SCH ×3 (08:05→20:35)
[2019-06-22] MEDS: DOXAZOSIN MESYLATE 2 MG TABLET PO SCH (08:05)
[2019-06-22] MEDS: ASCORBIC ACID 500 MG TAB PO SCH ×2 (08:06→20:35)
[2019-06-22] MEDS: FINASTERIDE 5 MG TABLET PO SCH (08:06)
[2019-06-22] MEDS: TAMSULOSIN HCL 0.4 MG CAP.ER.24H PO SCH (08:06)
[2019-06-22] MEDS: ZINC SULFATE 220 CAPSULE PO SCH (08:06)
[2019-06-22] MEDS: ENOXAPARIN SODIUM 60 MG/0.6 ML SQ SCH ×2 (08:06→21:20)
[2019-06-22] MEDS: CARVEDILOL 6.25 MG TABLET PO SCH ×2 (08:07→20:34)
[2019-06-22] MEDS: TICAGRELOR 90 MG TABLET PO SCH ×2 (08:07→20:33)
[2019-06-22] MEDS: ASPIRIN 81 MG EC TAB PO SCH (08:07)
[2019-06-22] MEDS: FLUTICASONE PROPIONATE 50MCG/SPRAY 16 GM BOTTLE EN SCH (08:08)
[2019-06-22] MEDS: DOCUSATE SODIUM 100 MG CAP PO SCH ×2 (08:08→20:35)
[2019-06-22] MEDS: CLONAZEPAM 0.5 MG TABLET PO SCH ×2 (08:11→20:33)
[2019-06-22] MEDS: ATORVASTATIN CALCIUM 20 MG TABLET PO SCH (20:33)
[2019-06-22] MEDS: SENNOSIDES 8.6 MG TABLET PO SCH (20:33)
[2019-06-22] MEDS: INSULIN GLARGINE 100 UNITS/ML 10 ML VIAL SQ SCH (21:19)
[2019-06-23] VITALS (24 sets, daily range): BP systolic 114–160; BP diastolic 47–81
[2019-06-23] MEDS: GUAIFENESIN-CODEINE 5 ML SYRUP PO PRN ×3 (04:25→21:22)
[2019-06-23 04:26] LABS: HEMATOCRIT 32.4 % (42-54); MEAN CORPUSCULAR HEMOGLOBIN 26.4 pg (27.0-33.0); MEAN CORPUSCULAR HGB CONC 32.7 g/dL (32.0-36.0); MEAN CORPUSCULAR VOLUME 80.8 fL (79-99); PLATELET COUNT (AUTO) 302 K/uL (130-400); RED BLOOD CELL COUNT(AUTO) 4.01 MIL/uL (4.50-6.20); RED CELL DISTRIBUTION WIDTH 13.2 % (11.0-15.5); WHITE BLOOD COUNT (AUTO) 8.4 K/uL (4.8-10.8)
[2019-06-23 04:39] LABS: BAND NEUTROPHILS % (MANUAL) 2 % (0-2); EOSINOPHILS % (MANUAL) 3 % (1-6); LYMPHOCYTES % (MANUAL) 8 % (22-44); MAN.DIFF COMMENT-IMPRESSION MANUAL DIFFERENTIAL; MONOCYTES % (MANUAL) 3 % (2-9); PLATELET MORPHOLOGY COMMENT ADEQUATE; SEGMENTED NEUTROPHILS % 84 % (40-70)
[2019-06-23 04:46] LABS: ALBUMIN 1.7 g/dL (3.5-5.0); BILIRUBIN,TOTAL 0.5 mg/dL (0.2-1.0); MAGNESIUM 2.2 mg/dL (1.80-2.40); TOTAL PROTEIN, SERUM 6.2 g/dL (6.0-8.3)
[2019-06-23] MEDS: INSULIN HUMULIN R 100 UNIT/ML 3ML SQ SCH ×4 (05:43→21:50)
[2019-06-23] MEDS: ZOSYN 3.375GM+NS 50ML 50 ML IV SCH ×3 (09:29→23:05)
[2019-06-23] MEDS: CARVEDILOL 6.25 MG TABLET PO SCH ×2 (09:30→21:18)
[2019-06-23] MEDS: TICAGRELOR 90 MG TABLET PO SCH ×2 (09:30→21:17)
[2019-06-23] MEDS: DOCUSATE SODIUM 100 MG CAP PO SCH ×2 (09:30→21:17)
[2019-06-23] MEDS: DOXAZOSIN MESYLATE 2 MG TABLET PO SCH (09:30)
[2019-06-23] MEDS: CLONAZEPAM 0.5 MG TABLET PO SCH ×2 (09:31→21:17)
[2019-06-23] MEDS: FINASTERIDE 5 MG TABLET PO SCH (09:31)
[2019-06-23] MEDS: TAMSULOSIN HCL 0.4 MG CAP.ER.24H PO SCH (09:31)
[2019-06-23] MEDS: ASCORBIC ACID 500 MG TAB PO SCH ×2 (09:31→21:18)
[2019-06-23] MEDS: HYDRALAZINE HCL 25 MG TABLET PO SCH ×3 (09:31→21:18)
[2019-06-23] MEDS: ZINC SULFATE 220 CAPSULE PO SCH (09:31)
[2019-06-23] MEDS: ENOXAPARIN SODIUM 60 MG/0.6 ML SQ SCH ×2 (09:31→21:19)
[2019-06-23] MEDS: DEXAMETHASONE 4 MG TAB PO SCH (09:31)
[2019-06-23] MEDS: ASPIRIN 81 MG EC TAB PO SCH (09:31)
[2019-06-23] MEDS: FLUTICASONE PROPIONATE 50MCG/SPRAY 16 GM BOTTLE EN SCH (09:32)
[2019-06-23] MEDS: SENNOSIDES 8.6 MG TABLET PO SCH (21:17)
[2019-06-23] MEDS: ATORVASTATIN CALCIUM 20 MG TABLET PO SCH (21:18)
[2019-06-23] MEDS: INSULIN GLARGINE 100 UNITS/ML 10 ML VIAL SQ SCH (21:51)
--- NOTE | 2019-06-23 22:16 | NUR ---
Patient continues to tolerate 4L n/c Sats good 98% will continue to monitor. Addendum: 06/23/19 at 2325 by JOSE STEELE RT Amended: Links added.
[2019-06-24] VITALS (24 sets, daily range): BP systolic 111–138; BP diastolic 48–75
[2019-06-24] MEDS: GUAIFENESIN-CODEINE 5 ML SYRUP PO PRN ×3 (02:12→20:20)
[2019-06-24 04:57] LABS: BASOPHILS % (AUTO) 0.2 % (0.0-5.0); EOSINOPHILS % (AUTO) 0.7 % (0.0-8.0); HEMATOCRIT 31.2 % (42-54); LYMPHOCYTES % (AUTO) 8.5 % (21.0-51.0); MEAN CORPUSCULAR HEMOGLOBIN 26.6 pg (27.0-33.0); MEAN CORPUSCULAR HGB CONC 32.7 g/dL (32.0-36.0); MEAN CORPUSCULAR VOLUME 81.5 fL (79-99); MONOCYTES % (AUTO) 7.3 % (3.0-13.0); NEUTROPHILS % (AUTO) 82.7 % (40.0-77.0); PLATELET COUNT (AUTO) 340 K/uL (130-400); RED BLOOD CELL COUNT(AUTO) 3.83 MIL/uL (4.50-6.20); RED CELL DISTRIBUTION WIDTH 13.2 % (11.0-15.5); WHITE BLOOD COUNT (AUTO) 9.3 K/uL (4.8-10.8)
[2019-06-24 05:06] LABS: POTASSIUM 4.4 mmol/L (3.5-5.1)
[2019-06-24] MEDS: ZOSYN 3.375GM+NS 50ML 50 ML IV SCH ×3 (06:51→23:03)
[2019-06-24] MEDS: INSULIN HUMULIN R 100 UNIT/ML 3ML SQ SCH ×4 (07:01→20:59)
[2019-06-24] MEDS: ENOXAPARIN SODIUM 60 MG/0.6 ML SQ SCH ×2 (08:40→20:18)
[2019-06-24] MEDS: CARVEDILOL 6.25 MG TABLET PO SCH ×2 (08:40→20:13)
[2019-06-24] MEDS: TAMSULOSIN HCL 0.4 MG CAP.ER.24H PO SCH (08:41)
[2019-06-24] MEDS: ZINC SULFATE 220 CAPSULE PO SCH (08:41)
[2019-06-24] MEDS: FINASTERIDE 5 MG TABLET PO SCH (08:41)
[2019-06-24] MEDS: ASPIRIN 81 MG EC TAB PO SCH (08:42)
[2019-06-24] MEDS: DOXAZOSIN MESYLATE 2 MG TABLET PO SCH (08:42)
[2019-06-24] MEDS: DEXAMETHASONE 4 MG TAB PO SCH (08:42)
[2019-06-24] MEDS: ASCORBIC ACID 500 MG TAB PO SCH ×2 (08:42→20:14)
[2019-06-24] MEDS: TICAGRELOR 90 MG TABLET PO SCH ×2 (08:42→20:12)
[2019-06-24] MEDS: HYDRALAZINE HCL 25 MG TABLET PO SCH ×3 (08:42→20:14)
[2019-06-24] MEDS: DOCUSATE SODIUM 100 MG CAP PO SCH ×2 (08:42→20:12)
[2019-06-24] MEDS: FLUTICASONE PROPIONATE 50MCG/SPRAY 16 GM BOTTLE EN SCH (08:43)
[2019-06-24] MEDS: CLONAZEPAM 0.5 MG TABLET PO SCH ×2 (08:45→20:12)
[2019-06-24] MEDS: SENNOSIDES 8.6 MG TABLET PO SCH (20:12)
[2019-06-24] MEDS: ATORVASTATIN CALCIUM 20 MG TABLET PO SCH (20:13)
[2019-06-24] MEDS: INSULIN GLARGINE 100 UNITS/ML 10 ML VIAL SQ SCH (21:00)
[2019-06-25] VITALS (26 sets, daily range): BP systolic 101–168; BP diastolic 52–93
[2019-06-25] MEDS: GUAIFENESIN-CODEINE 5 ML SYRUP PO PRN ×3 (03:10→22:56)
[2019-06-25] MEDS: INSULIN HUMULIN R 100 UNIT/ML 3ML SQ SCH ×4 (06:14→20:33)
[2019-06-25] MEDS: ZOSYN 3.375GM+NS 50ML 50 ML IV SCH (08:23)
[2019-06-25] MEDS: ENOXAPARIN SODIUM 60 MG/0.6 ML SQ SCH ×2 (08:23→20:10)
[2019-06-25] MEDS: TAMSULOSIN HCL 0.4 MG CAP.ER.24H PO SCH (08:25)
[2019-06-25] MEDS: DOCUSATE SODIUM 100 MG CAP PO SCH ×2 (08:25→20:08)
[2019-06-25] MEDS: CARVEDILOL 6.25 MG TABLET PO SCH ×2 (08:25→20:08)
[2019-06-25] MEDS: DOXAZOSIN MESYLATE 2 MG TABLET PO SCH (08:25)
[2019-06-25] MEDS: HYDRALAZINE HCL 25 MG TABLET PO SCH ×3 (08:25→20:08)
[2019-06-25] MEDS: ASPIRIN 81 MG EC TAB PO SCH (08:25)
[2019-06-25] MEDS: ZINC SULFATE 220 CAPSULE PO SCH (08:26)
[2019-06-25] MEDS: TICAGRELOR 90 MG TABLET PO SCH ×2 (08:26→20:08)
[2019-06-25] MEDS: FINASTERIDE 5 MG TABLET PO SCH (08:26)
[2019-06-25] MEDS: ASCORBIC ACID 500 MG TAB PO SCH ×2 (08:26→20:08)
[2019-06-25] MEDS: DEXAMETHASONE 4 MG TAB PO SCH (08:26)
[2019-06-25] MEDS: FLUTICASONE PROPIONATE 50MCG/SPRAY 16 GM BOTTLE EN SCH (08:29)
[2019-06-25] MEDS: CLONAZEPAM 0.5 MG TABLET PO SCH ×2 (08:37→20:08)
--- NOTE | 2019-06-25 12:50 | NUR ---
RD FOLLOW UP NOTE PT WITH IMPROVING APPETITE (75% PO). LBM 06/14/19; SENNA, COLACE IN PLACE. NOTED NORMAL BOWEL SOUND ACTIVITY, PER EMR. PT WITH GLUCERNA TID, 60ML PROMOD IN PLACE. RD TO CONTINUE TO MONITOR. PLEASE NOTIFY ADDITIONAL NUTRITION CONCERNS ARISE. THANK YOU. Addendum: 06/25/19 at [address] Amended: Links added.
--- NOTE | 2019-06-25 15:50 | NUR ---
Initiated skilled Physical Therapy Evaluation this PM.Patient requires maximum assistance with his bed mobility.Demonstrates UE/LE's muscle weakness affecting his overall functional mobility.Patient is high risk of falling at this time.Demonstrated and provided HEP for LE's and thera-band for upper extremities strengthening exercises.Patient was able to return demonstration fairly well. MAGDIEL Phelps was present during treatment plan and instructed patient that Nursing will continue to follow up with his daily exercises program as instructed.Physical Therapist will monitor patient's progress 2x per week. Addendum: 06/25/19 at 1557 by LAURI MELGOZA, PT PT Amended: Links added.
[2019-06-25] MEDS: ATORVASTATIN CALCIUM 20 MG TABLET PO SCH (20:07)
[2019-06-25] MEDS: SENNOSIDES 8.6 MG TABLET PO SCH (20:10)
[2019-06-25] MEDS: INSULIN GLARGINE 100 UNITS/ML 10 ML VIAL SQ SCH (20:32)
[2019-06-26] VITALS (27 sets, daily range): BP systolic 112–155; BP diastolic 46–74
[2019-06-26] MEDS: GUAIFENESIN-CODEINE 5 ML SYRUP PO PRN ×4 (04:02→23:15)
[2019-06-26 05:39] LABS: BASOPHILS % (AUTO) 0.6 % (0.0-5.0); EOSINOPHILS % (AUTO) 1.6 % (0.0-8.0); HEMATOCRIT 31.9 % (42-54); LYMPHOCYTES % (AUTO) 18.4 % (21.0-51.0); MEAN CORPUSCULAR HEMOGLOBIN 26.1 pg (27.0-33.0); MEAN CORPUSCULAR HGB CONC 32.3 g/dL (32.0-36.0); MEAN CORPUSCULAR VOLUME 80.8 fL (79-99); MONOCYTES % (AUTO) 10.8 % (3.0-13.0); PLATELET COUNT (AUTO) 334 K/uL (130-400); RED BLOOD CELL COUNT(AUTO) 3.95 MIL/uL (4.50-6.20); RED CELL DISTRIBUTION WIDTH 13.1 % (11.0-15.5); WHITE BLOOD COUNT (AUTO) 6.4 K/uL (4.8-10.8)
[2019-06-26 05:56] LABS: CREATININE 0.9 mg/dL (0.5-1.5)
[2019-06-26] MEDS: INSULIN HUMULIN R 100 UNIT/ML 3ML SQ SCH ×4 (06:16→21:59)
[2019-06-26] MEDS: HYDRALAZINE HCL 25 MG TABLET PO SCH ×3 (08:03→20:14)
[2019-06-26] MEDS: DOXAZOSIN MESYLATE 2 MG TABLET PO SCH (08:04)
[2019-06-26] MEDS: CARVEDILOL 6.25 MG TABLET PO SCH ×2 (08:04→20:18)
[2019-06-26] MEDS: DOCUSATE SODIUM 100 MG CAP PO SCH ×2 (08:04→20:14)
[2019-06-26] MEDS: TICAGRELOR 90 MG TABLET PO SCH ×2 (08:04→20:15)
[2019-06-26] MEDS: ZINC SULFATE 220 CAPSULE PO SCH (08:05)
[2019-06-26] MEDS: FINASTERIDE 5 MG TABLET PO SCH (08:05)
[2019-06-26] MEDS: TAMSULOSIN HCL 0.4 MG CAP.ER.24H PO SCH (08:05)
[2019-06-26] MEDS: DEXAMETHASONE 4 MG TAB PO SCH (08:05)
[2019-06-26] MEDS: ASPIRIN 81 MG EC TAB PO SCH (08:05)
[2019-06-26] MEDS: ASCORBIC ACID 500 MG TAB PO SCH ×2 (08:05→20:14)
[2019-06-26] MEDS: CLONAZEPAM 0.5 MG TABLET PO SCH ×2 (08:06→21:38)
[2019-06-26] MEDS: ENOXAPARIN SODIUM 60 MG/0.6 ML SQ SCH (08:06)
[2019-06-26] MEDS: FLUTICASONE PROPIONATE 50MCG/SPRAY 16 GM BOTTLE EN SCH (08:22)
[2019-06-26] MEDS: ATORVASTATIN CALCIUM 20 MG TABLET PO SCH (20:14)
[2019-06-26] MEDS: SENNOSIDES 8.6 MG TABLET PO SCH (20:15)
[2019-06-26] MEDS: INSULIN GLARGINE 100 UNITS/ML 10 ML VIAL SQ SCH (22:00)
[2019-06-27] VITALS (28 sets, daily range): BP systolic 107–143; BP diastolic 43–74
[2019-06-27 05:53] LABS: BASOPHILS % (AUTO) 0.5 % (0.0-5.0); EOSINOPHILS % (AUTO) 2.3 % (0.0-8.0); HEMATOCRIT 34.5 % (42-54); LYMPHOCYTES % (AUTO) 16.8 % (21.0-51.0); MEAN CORPUSCULAR HEMOGLOBIN 26.6 pg (27.0-33.0); MEAN CORPUSCULAR VOLUME 80.4 fL (79-99); MONOCYTES % (AUTO) 12.3 % (3.0-13.0); NEUTROPHILS % (AUTO) 67.3 % (40.0-77.0); PLATELET COUNT (AUTO) 359 K/uL (130-400); RED BLOOD CELL COUNT(AUTO) 4.29 MIL/uL (4.50-6.20); RED CELL DISTRIBUTION WIDTH 13.3 % (11.0-15.5); WHITE BLOOD COUNT (AUTO) 7.3 K/uL (4.8-10.8)
[2019-06-27 06:10] LABS: CARBON DIOXIDE 28 mmol/L (21-32); CHLORIDE 99 mmol/L (101-111); GLOMERULAR FILTR. RATE CALC 80 mL/min (>60); GLUCOSE,RANDOM 168 mg/dL (70-105); PHOSPHORUS 3.2 mg/dL (2.5-4.9); POTASSIUM 3.9 mmol/L (3.5-5.1); SODIUM SERUM 134 mmol/L (136-145); UREA NITROGEN, BLOOD 17 mg/dL (7-18)
[2019-06-27] MEDS: INSULIN HUMULIN R 100 UNIT/ML 3ML SQ SCH ×4 (06:22→21:27)
[2019-06-27] MEDS: DEXAMETHASONE 4 MG TAB PO SCH (09:02)
[2019-06-27] MEDS: DOCUSATE SODIUM 100 MG CAP PO SCH ×2 (09:02→21:21)
[2019-06-27] MEDS: CLONAZEPAM 0.5 MG TABLET PO SCH ×2 (09:02→21:19)
[2019-06-27] MEDS: ZINC SULFATE 220 CAPSULE PO SCH (09:02)
[2019-06-27] MEDS: ASCORBIC ACID 500 MG TAB PO SCH ×2 (09:02→21:21)
[2019-06-27] MEDS: DOXAZOSIN MESYLATE 2 MG TABLET PO SCH (09:03)
[2019-06-27] MEDS: ASPIRIN 81 MG EC TAB PO SCH (09:03)
[2019-06-27] MEDS: FINASTERIDE 5 MG TABLET PO SCH (09:03)
[2019-06-27] MEDS: TICAGRELOR 90 MG TABLET PO SCH ×2 (09:03→21:19)
[2019-06-27] MEDS: HYDRALAZINE HCL 25 MG TABLET PO SCH ×3 (09:05→21:22)
[2019-06-27] MEDS: FLUTICASONE PROPIONATE 50MCG/SPRAY 16 GM BOTTLE EN SCH (09:06)
[2019-06-27] MEDS: TAMSULOSIN HCL 0.4 MG CAP.ER.24H PO SCH (09:30)
[2019-06-27] MEDS: CARVEDILOL 6.25 MG TABLET PO SCH ×2 (09:30→21:00)
[2019-06-27] MEDS: GUAIFENESIN-CODEINE 5 ML SYRUP PO PRN ×2 (09:57→17:28)
[2019-06-27] MEDS ORDERED: ENOXAPARIN SODIUM 40 MG/0.4 ML SYRINGE SQ SCH (10:00)
--- NOTE | 2019-06-27 14:33 | NUR ---
Physical Therapist monitored patient's progress 06/27/2019.MAGDIEL Black stated that he emphasized to patient the importance of performing his own exercises everyday provided by his Physical Therapist.Patient is able to perform his own exercises program in bed using thera-band for upper extremities and lower extremity strengthening exercises, patient is now able to sit at the edge of bed without any assistance.Patient is progressing well w/ PT treatment plan provided.Nursing will continue following up patient's exercises program on a daily basis as instructed by Physical Therapist.Will continue monitoring patient's progress 2x per week Addendum: 06/27/19 at 1445 by LAURI MELGOZA PT PT Amended: Links added.
[2019-06-27] MEDS: SENNOSIDES 8.6 MG TABLET PO SCH (21:20)
[2019-06-27] MEDS: ATORVASTATIN CALCIUM 20 MG TABLET PO SCH (21:21)
[2019-06-27] MEDS: INSULIN GLARGINE 100 UNITS/ML 10 ML VIAL SQ SCH (21:25)
[2019-06-28] VITALS (43 sets, daily range): BP systolic 103–141; BP diastolic 52–95
[2019-06-28 05:04] LABS: BASOPHILS % (AUTO) 0.4 % (0.0-5.0); EOSINOPHILS % (AUTO) 1.7 % (0.0-8.0); HEMATOCRIT 34.2 % (42-54); LYMPHOCYTES % (AUTO) 14.9 % (21.0-51.0); MEAN CORPUSCULAR HEMOGLOBIN 25.9 pg (27.0-33.0); MEAN CORPUSCULAR HGB CONC 32.5 g/dL (32.0-36.0); MEAN CORPUSCULAR VOLUME 79.9 fL (79-99); MONOCYTES % (AUTO) 9.9 % (3.0-13.0); NEUTROPHILS % (AUTO) 72.7 % (40.0-77.0); PLATELET COUNT (AUTO) 343 K/uL (130-400); RED BLOOD CELL COUNT(AUTO) 4.28 MIL/uL (4.50-6.20); RED CELL DISTRIBUTION WIDTH 13.4 % (11.0-15.5); WHITE BLOOD COUNT (AUTO) 9.2 K/uL (4.8-10.8)
[2019-06-28 05:15] LABS: CREATININE 0.9 mg/dL (0.5-1.5); CRP QUANTITATIVE 48.3 mg/L (0.00-9.0); POTASSIUM 3.6 mmol/L (3.5-5.1)
[2019-06-28] MEDS: GUAIFENESIN-CODEINE 5 ML SYRUP PO PRN ×2 (06:09→12:08)
[2019-06-28] MEDS: INSULIN HUMULIN R 100 UNIT/ML 3ML SQ SCH ×4 (06:10→21:30)
[2019-06-28] MEDS: ASCORBIC ACID 500 MG TAB PO SCH ×2 (08:14→20:02)
[2019-06-28] MEDS: CARVEDILOL 6.25 MG TABLET PO SCH ×2 (08:14→20:03)
[2019-06-28] MEDS: DOXAZOSIN MESYLATE 2 MG TABLET PO SCH (08:15)
[2019-06-28] MEDS: CLONAZEPAM 0.5 MG TABLET PO SCH ×2 (08:15→20:03)
[2019-06-28] MEDS: FINASTERIDE 5 MG TABLET PO SCH (08:15)
[2019-06-28] MEDS: TICAGRELOR 90 MG TABLET PO SCH ×2 (08:15→20:03)
[2019-06-28] MEDS: HYDRALAZINE HCL 25 MG TABLET PO SCH ×3 (08:15→20:05)
[2019-06-28] MEDS: ASPIRIN 81 MG EC TAB PO SCH (08:15)
[2019-06-28] MEDS: DOCUSATE SODIUM 100 MG CAP PO SCH ×2 (08:15→20:02)
[2019-06-28] MEDS: TAMSULOSIN HCL 0.4 MG CAP.ER.24H PO SCH (08:15)
[2019-06-28] MEDS: FLUTICASONE PROPIONATE 50MCG/SPRAY 16 GM BOTTLE EN SCH (08:16)
[2019-06-28] MEDS: ZINC SULFATE 220 CAPSULE PO SCH (08:18)
[2019-06-28] MEDS: DEXAMETHASONE 4 MG TAB PO SCH (08:21)
--- NOTE | 2019-06-28 15:20 | NUR ---
RD FOLLOW UP NOTE PT LBM 06/14/19, PER EMR. SENNA, COLACE IN PLACE. PERSISTENT CONSTIPATION. PT TOLERATING 75GM, M/S DIET ORDER. NUTRITION SUPPLEMENTATION IN PLACE FOR INCREASED NUTRIENT NEEDS RELATED TO DYSPNEA. VITAMIN C AND ZNSO4 IN PLACE. RECOMMEND TO CONTINUE POC. RD TO CONTINUE TO MONITOR. PLEASE NOTIFY ADDITIONAL NUTRITION CONCERNS ARISE. THANK YOU. Addendum: 06/28/19 at [address] Amended: Links added.
[2019-06-28] MEDS ORDERED: LACTULOSE 20 GM/30 ML UDCUP ONE (17:02)
[2019-06-28] MEDS ORDERED: LACTULOSE 20 GM/30 ML UDCUP PO PRN (17:30)
[2019-06-28] MEDS: ATORVASTATIN CALCIUM 20 MG TABLET PO SCH (20:02)
[2019-06-28] MEDS: SENNOSIDES 8.6 MG TABLET PO SCH (20:03)
[2019-06-28] MEDS: INSULIN GLARGINE 100 UNITS/ML 10 ML VIAL SQ SCH (21:30)
[2019-06-29] VITALS (12 sets, daily range): BP systolic 99–149; BP diastolic 48–68
[2019-06-29 06:15] LABS: BASOPHILS % (AUTO) 0.6 % (0.0-5.0); HEMATOCRIT 32.7 % (42-54); LYMPHOCYTES % (AUTO) 17.8 % (21.0-51.0); MEAN CORPUSCULAR HEMOGLOBIN 27.3 pg (27.0-33.0); MEAN CORPUSCULAR HGB CONC 33.6 g/dL (32.0-36.0); MEAN CORPUSCULAR VOLUME 81.1 fL (79-99); MONOCYTES % (AUTO) 9.7 % (3.0-13.0); NEUTROPHILS % (AUTO) 69.2 % (40.0-77.0); PLATELET COUNT (AUTO) 302 K/uL (130-400); RED BLOOD CELL COUNT(AUTO) 4.03 MIL/uL (4.50-6.20); RED CELL DISTRIBUTION WIDTH 13.6 % (11.0-15.5); WHITE BLOOD COUNT (AUTO) 8.5 K/uL (4.8-10.8)
[2019-06-29 06:46] LABS: CREATININE 0.9 mg/dL (0.5-1.5); POTASSIUM 3.7 mmol/L (3.5-5.1)
[2019-06-29] MEDS: INSULIN HUMULIN R 100 UNIT/ML 3ML SQ SCH ×4 (07:30→23:39)
[2019-06-29 08:04] LABS: CRP QUANTITATIVE 37.9 mg/L (0.00-9.0)
[2019-06-29] MEDS: CLONAZEPAM 0.5 MG TABLET PO SCH ×2 (09:24→20:39)
[2019-06-29] MEDS: TICAGRELOR 90 MG TABLET PO SCH ×2 (09:24→20:40)
[2019-06-29] MEDS: DOXAZOSIN MESYLATE 2 MG TABLET PO SCH (09:24)
[2019-06-29] MEDS: HYDRALAZINE HCL 25 MG TABLET PO SCH ×3 (09:25→20:40)
[2019-06-29] MEDS: DEXAMETHASONE 4 MG TAB PO SCH (09:25)
[2019-06-29] MEDS: CARVEDILOL 6.25 MG TABLET PO SCH ×2 (09:25→20:39)
[2019-06-29] MEDS: ZINC SULFATE 220 CAPSULE PO SCH (09:25)
[2019-06-29] MEDS: DOCUSATE SODIUM 100 MG CAP PO SCH ×2 (09:25→20:40)
[2019-06-29] MEDS: ASPIRIN 81 MG EC TAB PO SCH (09:25)
[2019-06-29] MEDS: ASCORBIC ACID 500 MG TAB PO SCH ×2 (09:26→20:39)
[2019-06-29] MEDS: TAMSULOSIN HCL 0.4 MG CAP.ER.24H PO SCH (09:26)
[2019-06-29] MEDS: FINASTERIDE 5 MG TABLET PO SCH (09:26)
[2019-06-29] MEDS: FLUTICASONE PROPIONATE 50MCG/SPRAY 16 GM BOTTLE EN SCH (09:41)
--- NOTE | 2019-06-29 16:57 | NUR ---
Home O2; List of O2 providers given to primary nurse to give to pt. Call also placed to sig other Odalis and discussed Md recommendations for Home O2 @ [place]. Reviewed w her O2 providers in the area and phone numbers given as well. Discussed w her estimate on silva ranges for concentrators and portable O2. Per Odalis she will call O2 providers and see what arrangements she can work on. CM to f/u.
[2019-06-29] MEDS: ATORVASTATIN CALCIUM 20 MG TABLET PO SCH (20:38)
[2019-06-29] MEDS: GUAIFENESIN-CODEINE 5 ML SYRUP PO PRN (20:38)
[2019-06-29] MEDS: SENNOSIDES 8.6 MG TABLET PO SCH (20:39)
[2019-06-29] MEDS: INSULIN GLARGINE 100 UNITS/ML 10 ML VIAL SQ SCH (23:38)
[2019-06-30] MEDS: GUAIFENESIN-CODEINE 5 ML SYRUP PO PRN (04:30)
[2019-06-30] MEDS: ALPRAZOLAM 0.25 MG TABLET PO PRN ×2 (04:30→12:14)
[2019-06-30 04:38] VITALS: BP 122/59
[2019-06-30] MEDS: INSULIN HUMULIN R 100 UNIT/ML 3ML SQ SCH ×4 (05:14→21:44)
[2019-06-30 05:32] LABS: BASOPHILS % (AUTO) 0.4 % (0.0-5.0); EOSINOPHILS % (AUTO) 2.2 % (0.0-8.0); HEMATOCRIT 33.5 % (42-54); LYMPHOCYTES % (AUTO) 15.7 % (21.0-51.0); MEAN CORPUSCULAR HEMOGLOBIN 26.1 pg (27.0-33.0); MEAN CORPUSCULAR HGB CONC 32.5 g/dL (32.0-36.0); MEAN CORPUSCULAR VOLUME 80.1 fL (79-99); MONOCYTES % (AUTO) 10.3 % (3.0-13.0); NEUTROPHILS % (AUTO) 70.6 % (40.0-77.0); PLATELET COUNT (AUTO) 316 K/uL (130-400); RED BLOOD CELL COUNT(AUTO) 4.18 MIL/uL (4.50-6.20); RED CELL DISTRIBUTION WIDTH 13.7 % (11.0-15.5); WHITE BLOOD COUNT (AUTO) 8.6 K/uL (4.8-10.8)
[2019-06-30 05:37] LABS: CREATININE 0.8 mg/dL (0.5-1.5); CRP QUANTITATIVE 40.8 mg/L (0.00-9.0); POTASSIUM 3.7 mmol/L (3.5-5.1)
[2019-06-30 07:07] VITALS: BP 122/59
[2019-06-30] MEDS: HYDRALAZINE HCL 25 MG TABLET PO SCH ×3 (08:34→20:21)
[2019-06-30] MEDS: ASPIRIN 81 MG EC TAB PO SCH (08:34)
[2019-06-30] MEDS: DOCUSATE SODIUM 100 MG CAP PO SCH ×2 (08:35→20:22)
[2019-06-30] MEDS: CLONAZEPAM 0.5 MG TABLET PO SCH ×2 (08:35→20:21)
[2019-06-30] MEDS: TICAGRELOR 90 MG TABLET PO SCH ×2 (08:35→20:22)
[2019-06-30] MEDS: CARVEDILOL 6.25 MG TABLET PO SCH ×2 (08:36→20:22)
[2019-06-30] MEDS: DOXAZOSIN MESYLATE 2 MG TABLET PO SCH (08:37)
[2019-06-30] MEDS: FINASTERIDE 5 MG TABLET PO SCH (08:38)
[2019-06-30] MEDS: ASCORBIC ACID 500 MG TAB PO SCH ×2 (08:38→20:22)
[2019-06-30] MEDS: TAMSULOSIN HCL 0.4 MG CAP.ER.24H PO SCH (08:38)
[2019-06-30] MEDS: ZINC SULFATE 220 CAPSULE PO SCH (08:38)
[2019-06-30] MEDS: DEXAMETHASONE 4 MG TAB PO SCH (08:40)
[2019-06-30] MEDS: FLUTICASONE PROPIONATE 50MCG/SPRAY 16 GM BOTTLE EN SCH (08:41)
[2019-06-30 11:00] VITALS: BP 113/56
[2019-06-30] MEDS: ACETAMINOPHEN 325 MG TAB PO PRN (12:15)
[2019-06-30 16:00] VITALS: BP 117/48
[2019-06-30 20:00] VITALS: BP 120/59
[2019-06-30] MEDS: ATORVASTATIN CALCIUM 20 MG TABLET PO SCH (20:21)
[2019-06-30] MEDS: SENNOSIDES 8.6 MG TABLET PO SCH (20:24)
[2019-06-30] MEDS ORDERED: INSULIN GLARGINE 100 UNITS/ML 10 ML VIAL SQ SCH (21:00)
[2019-07-01] VITALS (8 sets, daily range): BP systolic 110–130; BP diastolic 50–69
[2019-07-01] MEDS: INSULIN HUMULIN R 100 UNIT/ML 3ML SQ SCH ×3 (05:44→15:35)
--- NOTE | 2019-07-01 08:30 | NUR ---
ASSESSMENT ENCOUNTERED PT IN JOSUE'S POSITION, A&OX3, CALM COOPERATIVE AND DOES NOT APPEAR TO BE IN ANY DISTRESS NOR ANY NEURO DEFICITS PRESENT. PT DENIES DIZZINESS, NAUSEA BUT DOES C/O COUGH WITH PHLEGM AND DYSPNEA ON EXERTION. PT TOLERATES FOOD, FLUIDS AN MEDICATION WITH NO THROAT CLEARING OR COUGH. PT WAS ABLE TO AMBULATE TO BEDSIDE COMMODE, GAIT SLOW AND UNSTEADY WITH ASSIST AND 1LNC, PT DID C/O SOB, O2SATS 77%, O2NC INCREASED TO 5LNC, O2SATS IMPROVED TO 95%. PERRY CATH SECURED TO STAT LOCK. CALL LIGHT WITHIN REACH.
[2019-07-01] MEDS: ASCORBIC ACID 500 MG TAB PO SCH (08:55)
[2019-07-01] MEDS: DOXAZOSIN MESYLATE 2 MG TABLET PO SCH (08:55)
[2019-07-01] MEDS: TAMSULOSIN HCL 0.4 MG CAP.ER.24H PO SCH (08:55)
[2019-07-01] MEDS: DOCUSATE SODIUM 100 MG CAP PO SCH (08:55)
[2019-07-01] MEDS: ASPIRIN 81 MG EC TAB PO SCH (08:55)
[2019-07-01] MEDS: CLONAZEPAM 0.5 MG TABLET PO SCH (08:56)
[2019-07-01] MEDS: HYDRALAZINE HCL 25 MG TABLET PO SCH ×2 (08:56→15:04)
[2019-07-01] MEDS: FINASTERIDE 5 MG TABLET PO SCH (08:56)
[2019-07-01] MEDS: TICAGRELOR 90 MG TABLET PO SCH (08:56)
[2019-07-01] MEDS: ZINC SULFATE 220 CAPSULE PO SCH (09:15)
[2019-07-01] MEDS: DEXAMETHASONE 4 MG TAB PO SCH (09:15)
[2019-07-01] MEDS: FLUTICASONE PROPIONATE 50MCG/SPRAY 16 GM BOTTLE EN SCH (09:25)
[2019-07-01] MEDS: CARVEDILOL 6.25 MG TABLET PO SCH (09:25)
--- NOTE | 2019-07-01 11:14 | NUR ---
Patient Desaturates upon moving. Addendum: 07/01/19 at 1115 by ROLANDO VIVEROS Amended: Links added.
--- NOTE | 2019-07-01 16:19 | NUR ---
DC PLAN SPOKE TO SEVERAL TIMES. GAVE INFO FOR [facility]. SPOKE TO [facility] FAXED AND EMAILED INFO REQUESTED. INCLUDING SCRIPT. SAID WILL DELIVER EQUIPMENT TO HOUSE PER PATIENT WILL GO VIA EMS. CALLED TO LET HER KNOW THAT WOULD HAVE TO BE PRIVATE PAY. GAVE HER INFO TO [facility] TO SET UP ARRANGEMENTS. FAXED PAPER WORK TO [facility]. LET NURSE KNOW. TRIED TO CALL [facility] SEVERAL TIMES TO SEE IF THEY HAD FINISHED SETTING UP DME NO ANSWER PHONE BUSY. Addendum: 07/01/19 at 1641 by COLEEN SOUSA RN CM Amended: Links added.
--- NOTE | 2019-07-01 18:29 | NUR ---
DISCHARGE INSTRUCTIONS GIVEN, PIV REMOVED AND INTACT, DISCHARGED HOME VIA EMS.
== END 2019-07-01 18:28 | disposition home or self-care (01) | DRG 871 ==
LOC: EDH 23:34 → EDHIP 23:35 → 2CH 06-11 02:20
PROVIDERS: ADMIT Internal Medicine; ATTEND Internal Medicine
DX: A41.9 Sepsis, unspecified organism (principal); U07.1 COVID-19; J18.0 Bronchopneumonia, unspecified organism; J96.01 Acute respiratory failure with hypoxia; J12.89 Other viral pneumonia; E87.1 Hypo-osmolality and hyponatremia; J44.0 Chronic obstructive pulmonary disease with (acute) lower respiratory infection; R04.2 Hemoptysis; E11.65 Type 2 diabetes mellitus with hyperglycemia; E66.9 Obesity, unspecified; Z68.27 Body mass index [BMI] 27.0-27.9, adult; E78.5 Hyperlipidemia, unspecified; F17.200 Nicotine dependence, unspecified, uncomplicated; F41.1 Generalized anxiety disorder; I10 Essential (primary) hypertension; I25.10 Atherosclerotic heart disease of native coronary artery without angina pectoris; K59.00 Constipation, unspecified; N40.1 Benign prostatic hyperplasia with lower urinary tract symptoms; R33.8 Other retention of urine; R65.20 Severe sepsis without septic shock; Z82.3 Family history of stroke; Z82.49 Family history of ischemic heart disease and other diseases of the circulatory system; Z82.5 Family history of asthma and other chronic lower respiratory diseases; Z83.3 Family history of diabetes mellitus; Z95.5 Presence of coronary angioplasty implant and graft
CPT/HCPCS: 36415; 71045; 80048; 80053; 80061; 81003; 82550; 82728; 82948; 83036; 83605; 83615; 83735; 83874; 83880; 84100; 84145; 84484; 85025; 85027; 85378; 85610; 85730; 86140; 87040; 87071; 87088; 87205; 87449; 87486; 87581; 87633; 87635; 87798; 87804; 87880; 93005; 94760; A4344; C9113; G0378; J0360; J0456; J0696; J1650; J1815; J2405; J2543; J2550; J2920; J2930; J7120; J8540

== ENCOUNTER 2019-07-20 15:31 | Emergency (ER) | payer MEDICARE ==
[~2019-07-20 15:31] MED LIST changes: -TICA90TA PO
[2019-07-20 16:13] LABS: BASOPHILS % (AUTO) 1.1 % (0.0-5.0); EOSINOPHILS % (AUTO) 5.2 % (0.0-8.0); LYMPHOCYTES % (AUTO) 19.3 % (21.0-51.0); MEAN CORPUSCULAR HEMOGLOBIN 26.1 pg (27.0-33.0); MEAN CORPUSCULAR VOLUME 81.6 fL (79-99); MONOCYTES % (AUTO) 6.9 % (3.0-13.0); NEUTROPHILS % (AUTO) 67.2 % (40.0-77.0); PLATELET COUNT (AUTO) 246 K/uL (130-400); RED BLOOD CELL COUNT(AUTO) 4.29 MIL/uL (4.50-6.20); RED CELL DISTRIBUTION WIDTH 14.5 % (11.0-15.5); WHITE BLOOD COUNT (AUTO) 6.5 K/uL (4.8-10.8)
[2019-07-20 16:25] LABS: CREATININE 0.9 mg/dL (0.5-1.5); POTASSIUM 4.2 mmol/L (3.5-5.1)
[2019-07-20 16:26] LABS: INR 0.99 (0.85-1.15); PARTIAL THROMBOPLASTIN TIME 27.2 SEC (26.3-35.5); PROTHROMBIN TIME 10.7 SEC (9.6-11.6)
[2019-07-20 16:29] LABS: ALBUMIN 3.1 g/dL (3.5-5.0); BILIRUBIN,TOTAL 0.4 mg/dL (0.2-1.0); TOTAL PROTEIN, SERUM 7.2 g/dL (6.0-8.3)
[2019-07-20] MEDS ORDERED: IOHEXOL-350 75 ML VIAL IV ONE (17:43)
[2019-07-20 18:46] LABS: ABG HCO3 24.3 mmol/L (21.0-28.0); ABG OXYGEN SATURATION 95.8 % (95.0-99.0); ABG PCO2 39 mmHg (35-48)
== END 2019-07-20 19:54 | disposition home or self-care (01) ==
LOC: EDH 15:31
DX: U07.1 COVID-19 (principal); J18.9 Pneumonia, unspecified organism; I25.10 Atherosclerotic heart disease of native coronary artery without angina pectoris; Z03.818 Encounter for observation for suspected exposure to other biological agents ruled out; E11.9 Type 2 diabetes mellitus without complications; E78.5 Hyperlipidemia, unspecified; I10 Essential (primary) hypertension; Z88.6 Allergy status to analgesic agent; Z88.7 Allergy status to serum and vaccine
CPT/HCPCS: 36415; 36600; 71045; 71275; 80053; 82550; 82803; 82948; 84484; 85025; 85610; 85730; 87040 ×2; 93005; 99285; Q9967

== ENCOUNTER 2019-10-25 23:44 | Observation (INO) | payer MEDICARE ==
[2019-10-26] MEDS ORDERED: ONDANSETRON HCL 4 MG/2 ML VIAL ONE (00:21)
[2019-10-26 00:22] LABS: POTASSIUM 3.7 mmol/L (3.5-5.1)
[2019-10-26 00:27] LABS: INR 0.94 (0.85-1.15); PARTIAL THROMBOPLASTIN TIME 25.3 SEC (26.3-35.5); PROTHROMBIN TIME 10.2 SEC (9.6-11.6)
[2019-10-26 00:29] LABS: ALBUMIN 3.8 g/dL (3.5-5.0); BILIRUBIN,TOTAL 0.3 mg/dL (0.2-1.0); MAGNESIUM 1.8 mg/dL (1.80-2.40); PHOSPHORUS 3.7 mg/dL (2.5-4.9); TOTAL PROTEIN, SERUM 7.1 g/dL (6.0-8.3)
[2019-10-26 00:35] LABS: BASOPHILS % (AUTO) 1.2 % (0.0-5.0); EOSINOPHILS % (AUTO) 6.1 % (0.0-8.0); HEMATOCRIT 37.4 % (42-54); LYMPHOCYTES % (AUTO) 31.7 % (21.0-51.0); MEAN CORPUSCULAR HEMOGLOBIN 25.6 pg (27.0-33.0); MEAN CORPUSCULAR HGB CONC 33.4 g/dL (32.0-36.0); MEAN CORPUSCULAR VOLUME 76.6 fL (79-99); NEUTROPHILS % (AUTO) 54.8 % (40.0-77.0); PLATELET COUNT (AUTO) 220 K/uL (130-400); RED BLOOD CELL COUNT(AUTO) 4.88 MIL/uL (4.50-6.20); RED CELL DISTRIBUTION WIDTH 14.1 % (11.0-15.5); WHITE BLOOD COUNT (AUTO) 8.5 K/uL (4.8-10.8)
[2019-10-26 08:21] LABS: BASOPHILS % (AUTO) 1.1 % (0.0-5.0); EOSINOPHILS % (AUTO) 6.5 % (0.0-8.0); HEMATOCRIT 36.2 % (42-54); LYMPHOCYTES % (AUTO) 26.7 % (21.0-51.0); MEAN CORPUSCULAR HEMOGLOBIN 25.2 pg (27.0-33.0); MEAN CORPUSCULAR HGB CONC 32.6 g/dL (32.0-36.0); MEAN CORPUSCULAR VOLUME 77.2 fL (79-99); MONOCYTES % (AUTO) 6.8 % (3.0-13.0); NEUTROPHILS % (AUTO) 58.6 % (40.0-77.0); PLATELET COUNT (AUTO) 190 K/uL (130-400); RED BLOOD CELL COUNT(AUTO) 4.69 MIL/uL (4.50-6.20); RED CELL DISTRIBUTION WIDTH 14.4 % (11.0-15.5); WHITE BLOOD COUNT (AUTO) 6.4 K/uL (4.8-10.8)
[2019-10-26 08:31] LABS: CREATININE 0.7 mg/dL (0.5-1.5); POTASSIUM 4.1 mmol/L (3.5-5.1)
[2019-10-26 08:44] LABS: ALBUMIN 3.3 g/dL (3.5-5.0); BILIRUBIN,TOTAL 0.3 mg/dL (0.2-1.0); THYROID STIMULATING HORMONE 2.31 uIU/mL (0.36-3.74); TOTAL PROTEIN, SERUM 6.7 g/dL (6.0-8.3)
[2019-10-26 11:22] VITALS: BP 139/66
[2019-10-26] MEDS: CEFTRIAXONE SODIUM 1 GM IVP SCH (12:14)
[2019-10-29 17:09] LABS: ROCKY MT SPOTTED FEVER IGG <1:64 (Neg:<1:64); TYPHUS FEVER AB IGG <1:64 (Neg:<1:64)
== END 2019-10-26 13:15 | disposition home or self-care (01) ==
LOC: EDH 23:44 → EDHIP 10-26 02:14 → 3DH 10-26 06:28
PROVIDERS: ADMIT Internal Medicine; ATTEND Internal Medicine
DX: R00.1 Bradycardia, unspecified (principal); I10 Essential (primary) hypertension; E78.5 Hyperlipidemia, unspecified; E11.9 Type 2 diabetes mellitus without complications; R42 Dizziness and giddiness; Z86.19 Personal history of other infectious and parasitic diseases
CPT/HCPCS: 36415; 71045; 80053 ×2; 82550; 82948 ×2; 83735; 84100; 84443; 84484; 85025 ×2; 85610; 85730; 86618; 86757; 87476; 93005; 96374; 99285; G0378 ×11; J0696; J2405

== ENCOUNTER 2022-12-19 20:39 | Emergency (ER) | payer MEDICARE ==
[~2022-12-19] VITALS: Ht 180.3 cm; Wt 101.2 kg
[~2022-12-19 20:39] MED LIST changes: -ISOS30TA6 PO; +ISOS30TA92 PO; +LISI10TA24 PO; -LISI10TA7 PO
[2022-12-19] MEDS ORDERED: DiphenhydrAMINE HCL 50 MG/ML VIAL IM ONE (22:00)
[2022-12-19] MEDS ORDERED: MONT-39 PO (22:39)
[2022-12-19] MEDS ORDERED: FEXO1TAB5 PO (22:39)
[2022-12-19 22:57] VITALS: BP 128/78; PULSE 88; RESP 20; O2SAT 99
== END 2022-12-19 23:00 | disposition home or self-care (01) ==
LOC: EDH 20:39
DX: J30.9 Allergic rhinitis, unspecified (principal); E11.9 Type 2 diabetes mellitus without complications; I10 Essential (primary) hypertension; Z79.4 Long term (current) use of insulin; Z79.82 Long term (current) use of aspirin; Z79.84 Long term (current) use of oral hypoglycemic drugs; Z79.899 Other long term (current) drug therapy; Z88.7 Allergy status to serum and vaccine
CPT/HCPCS: 99283; J1200

== ENCOUNTER → 2023-04-17 | Outpatient (CLI) | payer MEDICARE ==
[~2023-04-17] MED LIST changes: +FEXO1TAB5 PO; +MONT-39 PO
== END | disposition home or self-care (01) ==
LOC: SHCH 09:57
PROVIDERS: ATTEND Student in an Organized Health Care Education/Training Program
DX: M47.816 Spondylosis without myelopathy or radiculopathy, lumbar region (principal); I25.10 Atherosclerotic heart disease of native coronary artery without angina pectoris; M51.26 Other intervertebral disc displacement, lumbar region; M48.07 Spinal stenosis, lumbosacral region
CPT/HCPCS: 72100; 93306

== ENCOUNTER → 2023-08-31 | Outpatient (CLI) | payer MEDICARE | END | disposition home or self-care (01) | LOC: RAH 15:15 | PROVIDERS: ATTEND Internal Medicine | DX: Z01.818 Encounter for other preprocedural examination (principal); M47.815 Spondylosis without myelopathy or radiculopathy, thoracolumbar region | CPT/HCPCS: 71046 ==

== ENCOUNTER → 2024-07-18 | Outpatient (CLI) | payer MEDICARE ==
--- NOTE | 2024-07-18 09:45 | HMCIMG ---
US ABDOMINAL COMPLETE HISTORY: Biliary colic COMPARISON: None TECHNIQUE: Multiple transverse and longitudinal ultrasound images of the abdomen were obtained. FINDINGS: Liver measures 16.7 cm. The visualized portion of the pancreas is within normal limits. Liver is echogenic consistent with liver parenchymal disease. Tiny gallstones are seen in the gallbladder. Common duct measures 5 mm. No evidence of gallbladder wall thickening is seen. Both kidneys are seen. Right kidney measures 12 x 7.2 x 4.8 cm. Left kidney measures 9.3 x 5.7 x 5.1 cm. No hydronephrosis is seen of the both kidneys. The spleen is grossly unremarkable. IMPRESSION: 1. Tiny gallstones. No ductal dilatation is seen. 2. No hydronephrosis is seen.
== END | disposition home or self-care (01) ==
LOC: RAH 07:25
PROVIDERS: ATTEND Internal Medicine
DX: K80.20 Calculus of gallbladder without cholecystitis without obstruction (principal); K80.50 Calculus of bile duct without cholangitis or cholecystitis without obstruction
CPT/HCPCS: 76700

== ENCOUNTER 2024-11-12 01:54 | Emergency (ER) | payer MEDICARE, MEDICAID ==
[~2024-11-12] VITALS: Ht 180.3 cm; Wt 98.9 kg
[~2024-11-12 01:54] MED LIST changes: +ALPR-410 PO; +CLOP75TA32 PO; -FEXO1TAB5 PO; +FINA5TAB41 PO; -GLIP1TAB6 PO; -ISOS30TA92 PO; -MINERAL PO; -MONT-39 PO; -NITR0.4T50 SL
--- NOTE | 2024-11-12 02:13 | ERN ---
ED Note History of Present Illness Stated Complaint: C/O CP RADIATING TO BACK Chief Complaint: Chest Pain Time Seen by MD: 01:58 Dictation: This is a 69-year-old male who presented to the emergency room with complaints of chest pain which is radiating to the back. The pain is mostly in the epigastric area and lower chest and right upper quadrant area. He ate a lunch audible male for dinner with a spicy mustard. No fever chills or rigors. No nausea vomitings or diarrhea. Patient had a ultrasound of the abdomen in the past that showed tiny gallstones. He was recently admitted and discharged on 11/02/2024 for infected foot ulcer and he is currently on 24 hour antibiotic therapy with cefepime and vancomycin. During the recent admission he was also positive for COVID-19 infection. No diaphoresis or syncopal episode. He also denied palpitations. 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) Allergies: Coded Allergies: Tetanus Vaccines and Toxoid (Unverified Allergy, Unknown, UNKNOWN, 05/18/16) Home Meds Reported Medications Finasteride (Finasteride) 5 Mg Tablet, 1 TAB PO DAILY for 30 Days, #30 TAB 0 Refills 10/29/24 Clopidogrel Bisulfate (Clopidogrel) 75 Mg Tablet, 1 TAB PO DAILY for 30 Days, #30 TAB 0 Refills 10/29/24 Alprazolam (Alprazolam) 0.5 Mg Tab.rapdis, 1 TAB PO TIDP PRN for ANXIETY/AGITATION for 30 Days, #90 TAB 0 Refills 10/29/24 Atorvastatin Calcium (Atorvastatin Calcium) 20 Mg Tablet, 20 MG PO HS, TAB 12/06/16 Aspirin (ASPIRIN 81 MG ECTAB) 81 Mg Ectab, 81 MG PO DAILY, TAB.EC 12/06/16 Insuln Asp Prt/Insulin Aspart (Novolog Mix 70-30 Vial) 100 Unit/1 Ml Vial, 20 UNITS SQ PM, VIAL 09/07/16 Insuln Asp Prt/Insulin Aspart (Novolog Mix 70-30 Vial) 100 Unit/1 Ml Vial, 30 UNITS SQ DAILY, VIAL 09/07/16 Lisinopril (Lisinopril) 10 Mg Tablet, 10 MG PO DAILY, TAB 09/07/16 Tamsulosin HCl (Tamsulosin HCl) 0.4 Mg Cap.er.24h, 0.4 MG PO DAILY, CAPSULE. 05/19/16 Past Medical History Past Medical History: Diabetes-Type II, Heart Disease, Hypertension Surgical History: Other Surgical History Other: LEFT KNEE Social History: Negative, Lives with family RN Note Reviewed/Agreed w/PFSH: Yes Review of System Dictation Constitutional: Negative for fever,chills, and weight loss Eyes: Negative for injury, pain,redness, and discharge ENT: Negative for injury,pain or swelling Cardiovascular: Positive for chest pain, denies palpitations, and edema Respiratory: Negative for shortness of breath, cough, and wheezing, Abdomen/GI: Positive for epigastric and right upper quadrant abdominal pain radiating to the back, denied nausea, vomiting, diarrhea, and constipation Back: Negative for injury and pain : Negative for injury, bleeding and discharge MS/Extremity: Negative for injury and deformity Skin: Negative for rash, and discoloration Neuro: Negative for headache, weakness, numbness, tingling, and seizure Psych: Negative for suicide ideation, homicidal ideation, and hallucinations Initial Vital Sign VS Vital Signs Date Time Temp Pulse Resp B/P (MAP) Pulse Ox O2 Delivery O2 Flow Rate FiO2 11/12/24 01:59 97.9 59 20 200/68 99 Room Air 11/12/24 03:08 0 21 Physical Exam Dictation General: awake, alert, NAD Head/Face: Normocephalic, atraumatic Eyes: PERRL, EOMI, vision at baseline ENT: oral cavity clear, TMs clear, no signs of infection Neck: Trachea midline, supple, no nuchal rigidity Cardiovascular: RRR, normal S1/S2, No MRGs, no JVD Respiratory: CTAB, no respiratory distress, No rales or wheezes Abdomen: Soft, non-tender, non-distended, normal bowel sounds, no guarding or re bound. Skin: Warm, dry, normal turgor, no rash MS/Extremity: Pulses equal, no cyanosis, neurovascular intact, FROM Neuro: COAx4, GCS 15, strength 5/5, CN 2-12 intact, normal cerebellar exam, normal gait, Psych: Normal behavior, mood, and affect normal Extremities-trace edema without any palpable cords, Homans sign is negative Results (Laboratory/Radiology) Laboratory/Radiology Laboratory Tests Test 11/12/24 02:14 11/12/24 02:15 White Blood Count 7.7 K/uL (4.8-10.8) Red Blood Count 3.98 MIL/uL (4.50-6.20) L Hemoglobin 10.5 g/dL (14.0-18.0) L Hematocrit 32.4 % (42-54) L Mean Corpuscular Volume 81.4 fL (79-99) Mean Corpuscular Hemoglobin 26.4 pg (27.0-33.0) L Mean Corpuscular Hemoglobin Concent 32.4 g/dL (32.0-36.0) Red Cell Distribution Width 13.6 % (11.0-15.5) Platelet Count 183 K/uL (130-400) Mean Platelet Volume 11.1 fL (7.5-10.5) H Immature Granulocyte % (Auto) 0.4 % (0-1) Neutrophils (%) (Auto) 53.6 % (40.0-77.0) Lymphocytes (%) (Auto) 31.8 % (21.0-51.0) Monocytes (%) (Auto) 7.8 % (3.0-13.0) Eosinophils (%) (Auto) 4.7 % (0.0-8.0) Basophils (%) (Auto) 1.7 % (0.0-5.0) Neutrophils # (Auto) 4.1 K/uL (1.8-7.7) Lymphocytes # (Auto) 2.4 K/uL (1.0-4.8) Monocytes # (Auto) 0.6 K/uL (0.1-1.0) Eosinophils # (Auto) 0.36 K/uL (0.00-0.70) Basophils # (Auto) 0.13 K/uL (0.00-0.20) Absolute Immature Granulocyte (auto 0.03 K/uL (0-1) Nucleated Red Blood Cells 0.0 % (0.0-0.19) Prothrombin Time 11.0 SEC (9.6-11.6) Prothromb Time International Ratio 1.04 (0.85-1.15) Activated Partial Thromboplast Time 25.5 SEC (26.3-35.5) L Sodium Level 141 mmol/L (136-145) Potassium Level 3.7 mmol/L (3.5-5.1) Chloride Level 106 mmol/L (101-111) Carbon Dioxide Level 27 mmol/L (21-32) Blood Urea Nitrogen 11 mg/dL (7-18) Creatinine 0.9 mg/dL (0.5-1.3) Glomerular Filtration Rate Calc 91 mL/min (>90) Random Glucose 84 mg/dL (70-105) Total Calcium 8.6 mg/dL (8.5-10.1) Magnesium Level 1.80 mg/dL (1.80-2.40) Total Creatine Kinase 73 U/L (21-232) Troponin I High Sensitivity 8 ng/L (4-75) B-Type Natriuretic Peptide 118 pg/mL (0-100) H Urine Color COLORLESS (YELLOW) Urine Appearance CLEAR (CLEAR) Urine pH 5.5 (5.0-8.0) Urine Specific [place] 1.009 (1.001-1.031) Urine Protein NEGATIVE mg/dL (NEGATIVE) Urine Glucose (UA) NEGATIVE mg/dL (NEGATIVE) Urine Ketones NEGATIVE mg/dL (NEGATIVE) Urine Occult Blood NEGATIVE (NEGATIVE) Urine Nitrate NEGATIVE (NEGATIVE) Urine Bilirubin NEGATIVE mg/dL (NEGATIVE) Urine Urobilinogen 0.2 mg/dL (0.2-1.0) Urine Leukocyte Esterase NEGATIVE [place]/uL Labs Reviewed?: Yes EKG Comment: Twelve lead EKG done on 11/12/2024 at 1:59 a.m. showed a heart rate of 51, SC interval 208, QRS 141, QT/QTC 459/423. Impression sinus bradycardia nonspecific STT wave changes and also presence of right bundle branch block. EKG rhythm strip shows a normal sinus rhythm bradycardia but no acute ST-T elevations or deep ST depressions however nonspecific changes seen. Interpreted by ER MD Dr. Higuera Ultrasound Comment: Echocardiogram-10/29/2024 Conclusion There is normal left ventricular wall thickness. LVEF is 50-55%. The left ventricular diastolic function is normal. The aortic valve is normal in structure. The mitral valve is normal in structure. The tricuspid valve is normal in structure. DICTATED BY: TAM GÓMEZ MD DATE: 10/29/24 1412 ELECTRONICALLY SIGNED BY: TAM GÓMEZ MD DATE: 10/29/24 1527 ED Course ED Course Orders Procedure Category Date Status Time 12 Lead Ekg Tracing- EKG 11/12/24 Logged Technical 01:58 Cbc With Differential LAB 11/12/24 Complete 01:58 Basic Metabolic Panel LAB 11/12/24 Complete 01:58 Troponin I High LAB 11/12/24 Complete Sensitivity 01:58 Pt And Ptt LAB 11/12/24 Complete 01:58 Magnesium LAB 11/12/24 Complete 01:58 Chest 1vw RAD 11/12/24 Resulted 01:58 B-Type Natriuretic LAB 11/12/24 Complete Peptide 01:58 Aspirin 81mg Chew Tab PHA 11/12/24 Complete (Aspirin 81mg Chew 02:00 Urinalysis Profile LAB 11/12/24 Complete 01:59 Morphine 2mg Syg PHA 11/12/24 Complete (Morphine 2mg Syg) 02:30 Creatine Kinase, Total LAB 11/12/24 Complete 01:58 Hydrocodone/Apap PHA 11/12/24 Complete 5/325 ([place] 5/325mg) 03:00 Current Medications Medications (Trade) Dose Ordered Sig/Raymon Route PRN Reason Start Time Stop Time Status Last Admin Dose Admin Acetaminophen/ Hydrocodone Bitart (NORco 5/325MG) 1 tab ONCE ONCE PO 11/12/24 03:00 11/12/24 03:01 DC Aspirin (Aspirin 81mg Chew Tab) 81 mg ONCE ONCE PO 11/12/24 02:00 11/12/24 02:03 DC 11/12/24 02:28 Morphine Sulfate (morPHINE 2MG SYG) 2 mg ONCE ONCE IVP 11/12/24 02:30 11/12/24 02:33 DC Vital Signs Date Time Temp Pulse Resp B/P (MAP) Pulse Ox O2 Delivery O2 Flow Rate FiO2 11/12/24 03:08 47 16 175/66 96 Room Air* 0 21 11/12/24 01:59 97.9 59 20 200/68 99 Room Air We will perform diagnostic labs, advanced imaging and administer medications according to the patient's complaint. Once the results are available, will review and personally interpreted the labs to rule out any acute life- threatening emergency the trach require immediate intervention and treatment. I will then re-evaluate the patient after treatment and diagnostic exams have return to determine whether the patient requires any further testing, can safely be discharged home or need further admission to hospital for additional treatment and evaluation. 3:15 a.m. labs reviewed CBC shows a white count of 7.7 hemoglobin 10.5 platelets 183 urinalysis is unremarkable. Magnesium 1.7 BNP 7 is with a normal limits troponins are negative. Chest x-ray shows fine interstitial markings but no focal infiltrate. 3:50 a.m. patient feels significantly improved no pain feeling better. I went over all the labs EKG and cardiac workup so far. I did tell him that it could be biliary colic or renal colic and I requested CT scan of the abdomen and pelvis however patient declined and stated that he feels so much better and relieved that he would rather be discharged to home HEART Score Response (Comments) Value History: Moderate suspicion (+1) 1 EKG: Normal 0 Age: > 65yrs (+2) 2 Risk Factors: 3+ risk factors (+2) 2 Initial Troponin: Normal limit (0) 0 HEART Score Risk: Mod Risk for MACE (4-6) Total 5 Medical Decision Making MDM Differential diagnosis: Unstable angina, chest wall pain, costochondritis, esophagitis, gastritis, biliary colic, renal colic, hiatal hernia Rationale: Tests considered and ordered secondary to shared decision making include: Previous outside records reviewed: Old ER visits. Risk of complication and/or morbidity or mortality of patient management: None Medications-Per medication reconciliation Need for hospitalization: Patient does not meet criteria for hospitalization. Need for emergency major/minor surgery: No There are no social concerns with this patient. Prescription drug management Prescriptions will include symptomatic care Patient's prior external medical records from other ER visits were reviewed by me as indicated. Prior testing and results from previous visits were reviewed. Prior tests were taken into account with medical decision making and resource utilization, independent historian/historians were used to obtain complete medical history. I independently interpreted the test that were performed, results were reviewed by me and considered findings on radiology if ordered. Medical management and examination interpretation discussions were had by me with other qualified healthcare professionals as indicated for the patient's care. Problem List Problem List: (1) Chest pain (2) Hypertension (3) Diabetes mellitus (4) Hypercholesterolemia (5) Biliary colic symptom DX & DISP Disposition: Discharge Departure Impression: Primary Impression: Chest pain Additional Impressions: Hypertension, Diabetes mellitus, Hypercholesterolemia, Biliary colic symptom Condition: Stable Additional Instructions: Patient and the caregiver have been informed of all the diagnostic tests and the imaging conducted during the today's visit to the emergency room and has verbalized understanding of the results I have personally reviewed and interpreted all diagnostic exams performed here in the ER today as well as the vital signs documented by the nursing staff. The patient is now being discharged to home and should follow up with the primary care physician or the specialist as directed by the ER staff. Follow-up with primary care provider in 1 to 2 days. Take medications as directed here in the emergency room. Okay to continue home medications unless otherwise discussed during your visit in the emergency room today. Return to your nearest emergency room if symptoms worsen or if there is no improvement. Call 911 if you need immediate assistance. Take Tylenol or Motrin [id number] as needed and if no contraindications are present. Increase oral hydration. A wound culture or urine culture was ordered here in the emergency room department please follow-up with primary care provider and advise them to get repeat ports from our facility. If you had any Satya wrap/splints that were applied here, please do not remove them until you see your primary care or specialty. Referrals: DEBBIE DAMON MD (PCP) CECILE HIGUERA MD Nov 12, 2024 02:12
[2024-11-12 02:25] LABS: APPEARANCE,URINE CLEAR (CLEAR); GLUCOSE, URINE (UA) NEGATIVE (NEGATIVE); LEUKOCYTE ESTERASE ,URINE NEGATIVE Leu/uL (NEGATIVE); NITRATE,URINE NEGATIVE (NEGATIVE); OCCULT BLOOD,URINE NEGATIVE (NEGATIVE)
[2024-11-12] MEDS: ASPIRIN 81MG CHEW TAB PO ONE (02:28)
[2024-11-12 02:32] LABS: IMMATURE GRANULOCYTE ABSOLUTE 0.03 K/uL (0-1); NUCLEATED RED BLOOD CELLS 0.0 % (0.0-0.19); PLATELET COUNT (AUTO) 183 K/uL (130-400); RED BLOOD CELL COUNT(AUTO) 3.98 MIL/uL (4.50-6.20); RED CELL DISTRIBUTION WIDTH 13.6 % (11.0-15.5); WHITE BLOOD COUNT (AUTO) 7.7 K/uL (4.8-10.8)
[2024-11-12 02:44] LABS: ADD UA MICROSCOPIC NO
[2024-11-12 02:46] LABS: CREATININE 0.9 mg/dL (0.5-1.3); GLOMERULAR FILTR. RATE CALC 91.0 mL/min (>90); GLUCOSE,RANDOM 84.0 mg/dL (70-105); SODIUM SERUM 141.0 mmol/L (136-145); UREA NITROGEN, BLOOD 11.0 mg/dL (7-18)
[2024-11-12 02:47] LABS: INR 1.04 (0.85-1.15)
[2024-11-12 02:51] LABS: CREATINE KINASE, TOTAL 73.0 U/L (21-232)
--- NOTE | 2024-11-12 03:03 | HMCIMG ---
EXAM: CR Chest, 1 view CLINICAL HISTORY: Chest pain. COMPARISON: Chest radiograph dated 11/01/2024. FINDINGS: The left PICC line tip overlies the proximal SVC. The lungs show no infiltrates or other acute findings. No pleural effusion or pneumothorax. The cardiomediastinal silhouette is within normal limits. No acute osseous abnormality. IMPRESSION: No acute cardiopulmonary process is evident. The left PICC line tip overlies the proximal SVC. Compared to the prior study, there is no significant interval change. /[place]
[2024-11-12] MEDS: HYDROcodone/APAP 5/325 1 TAB TABLET PO ONE (03:07)
[2024-11-12 04:36] VITALS: TEMP 98.3
[2024-11-12 04:57] VITALS: BP 157/64; PULSE 48; RESP 18; O2SAT 98
--- NOTE | 2024-11-12 06:30 | EKG ---
[facility] Test Date: 2024-11-12 Test Time: 01:59:39 Pat Name: IDALMIS GIBSON Department: ED Room: Gender: M Overhead Cleaner: [id number] : 1955 Requested By: CECILE PETERSEN Order Number: [id number] Reading MD: Beth Fernando Measurements Intervals [place] Rate: 51 P: -27 TN: 208 QRS: -33 QRSD: 141 T: 28 QT: 459 QTc: 423 Interpretive Statements Sinus rhythm Right bundle branch block Compared to ECG 10/25/2019 23:54:46 No significant changes Electronically Signed On 11-12-2024 14:06:03 CDT by Beth Fernando Please click the below link to view image of tracing.
== END 2024-11-12 04:58 | disposition home or self-care (01) ==
LOC: EDH 01:54
DX: R07.89 Other chest pain (principal); I10 Essential (primary) hypertension; E11.9 Type 2 diabetes mellitus without complications; E78.00 Pure hypercholesterolemia, unspecified; K80.50 Calculus of bile duct without cholangitis or cholecystitis without obstruction; Z79.02 Long term (current) use of antithrombotics/antiplatelets; Z79.4 Long term (current) use of insulin; Z79.82 Long term (current) use of aspirin; Z79.899 Other long term (current) drug therapy; Z88.7 Allergy status to serum and vaccine
CPT/HCPCS: 36415; 71045; 80048; 81003; 82550; 83735; 83880; 84484; 85025; 85610; 85730; 93005; 99285; J2270